=== PATIENT | female | born 1955 | race Caucasian/White ===

== ENCOUNTER 2016-10-12 17:39 | Inpatient (IN) | payer OTHER ==
[~2016-10-12] VITALS: Ht 166.4 cm; Wt 113.6 kg
[~2016-10-12 17:39] MED LIST: ADV250INH IH; ALBU2.5V4 INHALATION; ALBU8.5H2 INHALATION; ATRV10T PO; BUPR300T52 PO; CALC1CAP22 PO; CYAN10008 PO; DILT-17 PO; DULO60CA42 PO; FLUC150T3 PO; FLUT9.9S NS; FURO-129 PO; KETO5DRO68 OP; LEVO50TA83 PO; LOV120 SUBQ; MAGN400T4 PO; METF1000 PO; MONT10TA20 PO; MULT-1080 PO; NITR-66 PO; NITR100 PO; OMEP40CA36 PO; OXYC5TAB72 PO; POTA-62 PO; PRAM0.5T3 PO; PREG200C PO; RANI300T4 PO; TELM20TA PO; TOPI200T17 PO; TROS20TA4 PO; VITA400C66 PO; WARF2TAB7 PO; WARF5TAB7 PO
[2016-10-12 17:48] VITALS: BP 132/77; PULSE 97; RESP 16; O2SAT 97
--- NOTE | 2016-10-12 17:57 | ED.REPORT ---
HPI-Headache Date of Service Oct 12, 2016 ED Provider: Marc Callaway DO This patient is a 61 year old female with a history Factor V Leiden with a history of pulmonary embolism and DVT on Coumadin, restrictive lung disease on O2, and obstructive sleep on CPAP presenting to the ED complaining of frontal headache that began this morning. Her headache was a gradual onset associated with nausea that steadily worsened. Her headache started at the front of her head and is now radiates to the back of her head. She also complains of abdominal pain that has been ongoing for the past month and states that she generally feels unwell. She denies syncope, nausea, vomiting or fever. The patient was also recently treated for a bladder infection. Nursing Notes Stated Complaint: NAUSEA,HEADACHE Chief Complaint: Headache Nursing Notes Reviewed: Yes Allergies: Coded Allergies: NSAIDS (Non-Steroidal Anti-Inflamma (Verified Allergy, Intermediate, ) stomach bleed Scheduled Atorvastatin (Lipitor) 10 Mg Tab 10 MG PO DAILY Bupropion ER (Bupropion ER) 300 Mg Tab.er.24h 300 MG PO QAM Calcium Carbonate/Vitamin D3 (Calcium 600 + Vit D 400 Softgl) 1 Each Capsule 1 TAB PO DAILY Cyanocobalamin (Vitamin B-12) (Vitamin B-12) 1,000 Mcg Tablet 1,000 MCG PO DAILY Diltiazem ER (Diltiazem ER) 120 Mg Cap.er.24h 120 MG PO QAM Duloxetine (Cymbalta) 60 Mg Capsule.dr 60 MG PO HS Enoxaparin (Lovenox) 120 Mg/0.8 Ml Syringe 120 MG SUBQ Q12 Please follow instructions of the coumadin clinic Fluconazole (Fluconazole) 150 Mg Tablet 150 MG PO ONCE Fluticasone Propionate (Flonase Allergy Relief) 50 Mcg/Actuation [place].susp 9.9 ML NS DAILY Fluticasone/Salmeterol (Advair 250-50 Diskus) 60 Puff/Inh Disk 1 PUFF IH BID Furosemide (Lasix) 20 Mg Tablet 20 MG PO DAILY Ketotifen Fumarate (Zaditor) 5 Ml Drops 1 DROP OP Q12 Levothyroxine (Synthroid) 50 Mcg Tablet 50 MCG PO DAILY Magnesium Oxide (Magnesium Oxide) 400 Mg Tablet 400 MG PO Q2DAY Metformin (Glucophage) 1,000 Mg Tablet 1,000 MG PO BIDAC Montelukast (Singulair) 10 Mg Tablet 10 MG PO HS Multivits,Ca,Minerals/Iron/FA (Women's Daily Formula Caplet) 500-18-0.4 Tablet 1 EACH PO DAILY Nitrofurantoin Macrocrystal (Macrodantin) 100 Mg Capsule 100 MG PO HS Nitrofurantoin Monohyd/M-Cryst (MacroBid) 100 Mg Capsule 100 MG PO BID Omeprazole (Omeprazole) 40 Mg Capsule.dr 40 MG PO QAM Potassium Chloride ER (Potassium Chloride ER) 20 Meq Tablet.er 20 MEQ PO BID TAKE WITH FOOD Pramipexole Dihydrochloride (Mirapex) 0.5 Mg Tablet 0.25-0.5 MG PO HS Pregabalin (Lyrica) 200 Mg Capsule 200 MG PO TID Ranitidine (Ranitidine) 300 Mg Tablet 300 MG PO QPM Telmisartan (Micardis) 20 Mg Tablet 20 MG PO DAILY Topiramate (Topamax) 200 Mg Tablet 200 MG PO BID Trospium Chloride (Trospium Chloride) 20 Mg Tablet 20 MG PO BID Vitamin E Acetate (Vitamin E) 400 Unit Capsule 400 UNIT PO DAILY Warfarin Sodium (Warfarin Sodium) 2 Mg Tablet 5 MG PO sunday, sunday Warfarin Sodium (Warfarin Sodium) 5 Mg Tablet 7 MG PO Sun, , , fr, sat Scheduled PRN Albuterol HFA (Proair HFA) 8.5 Gm Hfa.aer.ad 2 PUFFS INHALATION Q4H PRN PRN For Wheezing Albuterol Neb Soln (Albuterol Neb Soln) 2.5 Mg/3 Ml Vial.neb 2.5 MG INHALATION Q4H PRN PRN For Wheezing General Time Seen by MD: 17:56 Chief Complaint Headache (Frontal) Hx Obtained From: Patient Arrived By: Walk-in Sudden in Onset?: No Onset Occurred: 13 - 16 hours ago Symptom Duration: Since onset Location: : Frontal bilateral Quality: Painful Radiation: : Does not radiate: Neck, anterior Severity: Current: Mild Severity: Maximum: Mild Recent Healthcare: No recent hospitalization, Recent doctor visit Similar Sx Previous: Yes Past Medical History Past Medical History 1. Factor V Leiden with a history of pulmonary embolism and DVT, on Coumadin. 2. History of restrictive lung disease, on 2-3 L of home oxygen daily. 3. Obstructive sleep apnea, on CPAP. 4. Morbid obesity. 5. Type 2 diabetes. 6. Left foot drop. 7. Fibromyalgia. 8. History of seizures. Her last seizure she states was 10 years ago. 9. GI bleeding secondary to NSAIDs. 10. Asthma. 11. Chronic low back pain. 12. Lower extremity edema. Reports: GERD, Hypertension Past Surgical History Cardiac cath Ventral hernia repair 2006 Arthroscopy for torn R knee cartilage 1971 Green filter placement 2004 for PE Cataracts bilaterally Bladder suspension/ovarian cyst removal 2007 R ankle/leg fracture repair with pin 1987 Lateral gaze deviation realignment 196 Smoking History Never Smoker Social History Other Social History: Good social support, , Local resident Ambulatory Status Independent Review of Systems Basic Review of Systems Respiratory: No shortness of breath, No cough, No wheeze Cardiovascular: No dyspnea on exertion Constitutional: Denies: Chills, Fever GI: Reports: Abdominal pain (onset 1 month ago), Nausea, Denies: Vomiting Neurologic: Reports: Headache (Frontal that radiated to back of her head), Denies: Syncope Complete sys rev & neg: except as marked. Physical Exam Initial Vital Signs Vital Signs (First) Date Time Temp Pulse Resp B/P Pulse Ox O2 Delivery O2 Flow Rate FiO2 10/12/16 17:48 36.3 97 16 132/77 97 Room Air 10/12/16 21:34 2 Initial VS: Reviewed ENT: Mucous membranes moist, Conjunctiva normal, No scleral icterus Respiratory: Breath sounds normal, Clear to auscultation, No respiratory distress Cardiovascular: Regular rate & rhythm, Heart sounds normal, Intact distal pulses Abdomen / GI: Soft Extremities: Vascular intact, Neuro intact Skin: Warm, Dry, No cyanosis Psychiatric: Mood/affect normal, Behavior normal, Normal thought content General/Constitutional: Awake, Alert Head / Eyes: Atraumatic, Normocephalic, PERRL, EOMI Neck: Atraumatic, Supple, No meningismus, Full range of motion, Non-tender Neurologic: Oriented X3, Speech NL, No motor deficits, No sensory deficits, CN II - XII intact Interpretation & Diagnostics Interpretation & Diagnostics: CT Head 1: IMPRESSION: No acute intracranial disease process. Dictated by: Raisa Maldonado MD, PhD on 10/12/2016 at 18:18 CT head 2: Normal exam. No acute intracranial abnormality. Dictated by: Maribel Vogel MD Lab Results Interpretation Result Diagram: 10/13/16 0912 10/12/16 1822 Test 10/12/16 18:09 10/12/16 18:22 Hold Rosenthal Top Tube Received (Received) Neutrophils (%) (Auto) 46.5% (40-74) Lymphocytes (%) (Auto) 43.2% (14-46) Monocytes (%) (Auto) 8.3% (4-12) Eosinophils (%) (Auto) 1.7% (0-5) Basophils (%) (Auto) 0.2% (0-3) Sodium Level 143mEq/L (134-144) Potassium Level 4.1mEq/L (3.5-5.2) Chloride Level 104mEq/L (97-108) Carbon Dioxide Level 25mmol/L (18-29) Blood Urea Nitrogen 18mg/dL (8-27) Creatinine 0.93mg/dL (0.57-1.00) Estimat Glomerular Filtration Rate 88mL/min (>59) Glucose Level 133mg/dL (60-99) Calcium Level 9.2mg/dL (8.5-10.1) Total Bilirubin 0.2mg/dL (0.0-1.2) Aspartate Amino Transf (AST/SGOT) 23U/L (0-50) Alanine Aminotransferase (ALT/SGPT) 17U/L (0-32) Alkaline Phosphatase 82U/L (25-165) Total Protein 8.0g/dL (6.4-8.4) Albumin 4.2g/dL (3.4-5.0) Pulse Oximetry Interpretation Pulse Oximetry Interpretation: 97% on room air ECG Interpretation ECG Interpretation: 97% on room air CT Head Interpretation CT Abd / Pelvis Interpretation Re-Eval/Medical Decision Med Decision/Clinical Course Patient is a 61 year old female with a history of Factor V Leiden with a history of pulmonary embolism and DVT on Coumadin who presents to the ED with a headache onset this morning. Examination was normal. Head was atraumatic. Neck is supple and nontender. Neurological exam nonfocal. CT scan of the head was negative. The patient complained of a worsening headache while in the emergency department, with repeat CT scan of her head also negative. Patient has an INR >10 with PT of >120 and was started on Vitamin K. Labs are otherwise unremarkable. Evaluation was reassuring. Patient will be admitted to the hospital for ongoing management of her headache and INR. Admitted to Dr. Reina. Source of Hx: Old records Re-Evaluation/Progress #1: Time of Eval: 19:07 Re-Evaluation/Progress Note: Told pt. she has an INR of 10. CT scan of her head was negative. She needs to be admitted. Pt. understands and agrees with plan. All questions have been addressed. Re-Evaluation/Progress #2: Time of Eval: 22:02 )( Patient Status: Condition improved Re-Evaluation/Progress Note: Pt. rechecked. Pt. has worsening headache. Will repeat CT head. Pt. understands and agrees with plan. All questions have been addressed. Counseled Regarding: Diagnosis, Lab results, Need for admission Discharge & Departure Impression: Primary Impression: Headache Headache type: unspecified Headache chronicity pattern: acute headache Intractability: not intractable Qualified Code: R51 - Headache Additional Impressions: Elevated INR Over-anticoagulated Disposition: ADMITTED TO HOSPITAL Discharge Condition All VS Reviewed: Yes Condition: Stable Referrals: Ryan Castillo DO (PCP) Stephanie Attestation Portions of this note were transcribed by Anaid Thibodeaux and Carmen Mcginnis I, Dr. Callaway personally performed the history, physical exam and medical decision-making ; I reviewed and confirmed the accuracy of the information in the transcribed note. Signed by: Anaid Thibodeaux and Stephanie Cardenas, 10/13/2016 and 0126 copies to: Ryan Castillo Todd P DO Oct 12, 2016 17:57 Jacquelyn Thibodeaux [Anaid] Oct 12, 2016 18:50 Carmen Mcginnis Oct 13, 2016 01:26 Re-Eval/Medical Decision Med Decision/Clinical Course Patient is a 61 year old female with a history of Factor V Leiden with a history of pulmonary embolism and DVT on Coumadin who presents to the ED with a headache onset this morning. Examination was normal. Head was atraumatic. Neck is supple and nontender. Neurological exam nonfocal. CT scan of the head was negative. The patient complained of a worsening headache while in the emergency department, with repeat CT scan of her head also negative. Patient has an INR >10 with PT of >120 and was started on Vitamin K. Labs are otherwise unremarkable. Evaluation was reassuring. Patient will be admitted to the hospital for ongoing management of her headache and INR. Admitted to Dr. Reina. Source of Hx: Old records Re-Evaluation/Progress #1: Time of Eval: 19:07 Re-Evaluation/Progress Note: Told pt. she has an INR of 10. CT scan of her head was negative. She needs to be admitted. Pt. understands and agrees with plan. All questions have been addressed. Re-Evaluation/Progress #2: Time of Eval: 22:02 )( Patient Status: Condition improved Re-Evaluation/Progress Note: Pt. rechecked. Pt. has worsening headache. Will repeat CT head. Pt. understands and agrees with plan. All questions have been addressed. Counseled Regarding: Diagnosis, Lab results, Need for admission Discharge & Departure Impression: Primary Impression: Headache Headache type: unspecified Headache chronicity pattern: acute headache Intractability: not intractable Qualified Code: R51 - Headache Additional Impressions: Elevated INR Over-anticoagulated Disposition: ADMITTED TO HOSPITAL Discharge Condition All VS Reviewed: Yes Condition: Stable Referrals: Ryan Castillo DO (PCP) Stephanie Attestation Portions of this note were transcribed by Anaid Mcginnis I, Dr. Callaawy personally performed the history, physical exam and medical decision-making ; I reviewed and confirmed the accuracy of the information in the transcribed note. Signed by: Anaid Thibodeaux and Stephanie Cardenas, 10/13/2016 and 0126 copies to: Ryan Castillo Todd P DO Oct 12, 2016 17:57 Jacquelyn Thibodeaux [Anaid] Oct 12, 2016 18:50 Carmen Mcginnis Oct 13, 2016 01:26
--- NOTE | 2016-10-12 18:20 | DRSVH ---
PROCEDURE: CT BRAIN WITHOUT CONTRAST ([id number]) INDICATIONS: RAMIREZ, elevated INR TECHNIQUE: Noncontrast 4.5 mm thick angled axial sections acquired from the foramen magnum to the vertex, with c oronal reformats. COMPARISON: [facility], CT, CT BRAIN WO CON, 07/22/2015, 19:27. FINDINGS: Image quality: Excellent. CSF spaces: Basal cisterns are patent. No extra-axial fluid collections. Ventricles are normal in size and shape. Brain: No midline shift. No intracranial masses or hemorrhage. Andrews-white matter interface is norm al. Skull and face: Calvarium and visualized facial bones are intact, without suspicious lesions. Sinuses: Mucous retention cyst versus polyp is noted in the right maxillary sinus. The mastoids are clear. IMPRESSION: No acute intracranial disease process. Dictated by: Raisa Maldonado MD, PhD on 10/12/2016 at 18:18 Approved by: Raisa Maldonado MD, PhD on 10/12/2016 at 18:18
[2016-10-12 18:32] LABS: BASOPHILS % (AUTO) 0.2 % (0-3); EOSINOPHILS % (AUTO) 1.7 % (0-5); MONOCYTES % (AUTO) 8.3 % (4-12); Mean Corpuscular Hemoglobin 31.3 pg (27.0-35.0); Mean Corpuscular Volume 94.7 fL (81-100); NEUTROPHILS % (AUTO) 46.5 % (40-74); Platelet Count 242 bil/L (150-400)
[2016-10-12] MEDS ORDERED: oxyCODONE-Acetamin 5-325 mg Tablet PO ONE (18:50)
[2016-10-12] MEDS ORDERED: Dexamethasone Inj 10 MG in 0.9% Sodium Chloride-Pha MIX 50 ML IV ONE (18:50)
[2016-10-12] MEDS ORDERED: Ondansetron 8 mg ODT Tablet PO ONE (18:50)
[2016-10-12 18:52] LABS: INR > 10.00 ratio
[2016-10-12] MEDS ORDERED: Phytonadione (Adult) 10 mg/1 mL Inj PO ONE (19:00)
[2016-10-12 21:34] VITALS: BP 114/74; PULSE 80; RESP 20; O2SAT 99
[2016-10-12] MEDS ORDERED: Alum-Mag Hydrox-Simeth 30 mL Suspension PO PRN (22:55)
[2016-10-12] MEDS ORDERED: Polyethylene Glycol (PEG) 17 Gm Powder PO PRN (22:55)
[2016-10-12] MEDS ORDERED: Ondansetron 2 mg/mL 2 mL Inj IVPUSH PRN (22:55)
[2016-10-13] MEDS ORDERED: Pantoprazole 4 mg/mL 10 mL Inj IVPUSH ONE (01:50)
[2016-10-13] MEDS ORDERED: Glucose 40% Oral Gel 15 Gm Tube PO PRN (02:40)
--- NOTE | 2016-10-13 02:43 | PCM.HPMED ---
Subjective Date of Service Oct 13, 2016 Primary Provider: Admitting Physician: Ximena Reina DO Primary Care Physician: Ryan Castillo DO Attending Physician: Ximena Reina DO Chief Complaint: Frontal headache History of Present Illness: 61-year-old female with complex medical history significant for factor V Leiden and protein C deficiency with history of PE and DVT on Coumadin for anticoagulation and also chronic migraine headaches who presents to the ED as instructed by her primary care physician due to INR greater than 10 and ongoing headache abdominal pain. Patient states that the headache started on 2016 in the evening and continued through the next day despite attempts to break the headache with pain medication. At the onset of headache the patient also had abdominal pain which she says likely linked to her not having complete bowel movements. Patient states that she present to the INR clinic and was told that she had INR greater than 8. She followed up with the lab who alex blood and she later received a call from her PCP that she needed to go to the ED because of her symptoms and elevated INR. On presentation the patient continues to have headache and was given steroids, opiates, and diphenhydramine to try to break the headache which she says helped but did not take the headache away. She has photosensitivity but no phonophobia. She states that she has nausea without vomiting but does state that she has had some tarry stools although she denies that they are black in color. She denies all other review of symptoms including sensation loss, weakness, changes in vision, dizziness, lightheadedness, fever, chills, dysuria. Patient is taking fluconazole along with some other antibiotic that she thinks may cause increase in her INR. In ED she received medications for her headache and vitamin K to reverse INR. She underwent to CT-head 2 and both were negative for acute bleed. White count 3.3, hemoglobin 14.2, hematocrit 42.9, platelet count is 242, neutrophils 46.5 Sodium is 143, potassium 4.1, chloride 104, bicarbonate 25, BUN 18, creatinine 0.93, glucose elevated at 133 PT/INR is >120/>10 Review of Systems: Complete review of systems performed; gram-positive negatives per history of present illness all his systems reviewed and are negative Allergies Coded Allergies: NSAIDS (Non-Steroidal Anti-Inflamma (Verified Allergy, Intermediate, ) stomach bleed Home Medications Atorvastatin (Lipitor) 10 Mg Tab 10 MG PO DAILY Bupropion ER (Bupropion ER) 300 Mg Tab.er.24h 300 MG PO QAM Calcium Carbonate/Vitamin D3 (Calcium 600 + Vit D 400 Softgl) 1 Each Capsule 1 TAB PO DAILY Cyanocobalamin (Vitamin B-12) (Vitamin B-12) 1,000 Mcg Tablet 1,000 MCG PO DAILY Diltiazem ER (Diltiazem ER) 120 Mg Cap.er.24h 120 MG PO QAM Duloxetine (Cymbalta) 60 Mg Capsule.dr 60 MG PO HS Enoxaparin (Lovenox) 120 Mg/0.8 Ml Syringe 120 MG SUBQ Q12 Please follow instructions of the coumadin clinic Fluconazole (Fluconazole) 150 Mg Tablet 150 MG PO ONCE Fluticasone Propionate (Flonase Allergy Relief) 50 Mcg/Actuation [place].susp 9.9 ML NS DAILY Fluticasone/Salmeterol (Advair 250-50 Diskus) 60 Puff/Inh Disk 1 PUFF IH BID Furosemide (Lasix) 20 Mg Tablet 20 MG PO DAILY Ketotifen Fumarate (Zaditor) 5 Ml Drops 1 DROP OP Q12 Levothyroxine (Synthroid) 50 Mcg Tablet 50 MCG PO DAILY Magnesium Oxide (Magnesium Oxide) 400 Mg Tablet 400 MG PO Q2DAY Metformin (Glucophage) 1,000 Mg Tablet 1,000 MG PO BIDAC Montelukast (Singulair) 10 Mg Tablet 10 MG PO HS Multivits,Ca,Minerals/Iron/FA (Women's Daily Formula Caplet) 500-18-0.4 Tablet 1 EACH PO DAILY Nitrofurantoin Macrocrystal (Macrodantin) 100 Mg Capsule 100 MG PO HS Nitrofurantoin Monohyd/M-Cryst (MacroBid) 100 Mg Capsule 100 MG PO BID Omeprazole (Omeprazole) 40 Mg Capsule.dr 40 MG PO QAM Potassium Chloride ER (Potassium Chloride ER) 20 Meq Tablet.er 20 MEQ PO BID TAKE WITH FOOD Pramipexole Dihydrochloride (Mirapex) 0.5 Mg Tablet 0.25-0.5 MG PO HS Pregabalin (Lyrica) 200 Mg Capsule 200 MG PO TID Ranitidine (Ranitidine) 300 Mg Tablet 300 MG PO QPM Telmisartan (Micardis) 20 Mg Tablet 20 MG PO DAILY Topiramate (Topamax) 200 Mg Tablet 200 MG PO BID Trospium Chloride (Trospium Chloride) 20 Mg Tablet 20 MG PO BID Vitamin E Acetate (Vitamin E) 400 Unit Capsule 400 UNIT PO DAILY Warfarin Sodium (Warfarin Sodium) 2 Mg Tablet 5 MG PO sunday, sunday Warfarin Sodium (Warfarin Sodium) 5 Mg Tablet 7 MG PO Sun, , , fr, sat Albuterol HFA (Proair HFA) 8.5 Gm Hfa.aer.ad 2 PUFFS INHALATION Q4H PRN PRN For Wheezing Albuterol Neb Soln (Albuterol Neb Soln) 2.5 Mg/3 Ml Vial.neb 2.5 MG INHALATION Q4H PRN PRN For Wheezing oxyCODONE (oxyCODONE) 5 Mg Tablet 5-10 MG PO Q6H PRN PRN For Pain PMH 1. Factor V Leiden with a history of pulmonary embolism and DVT, on Coumadin. 2. History of restrictive lung disease, on 2-3 L of home oxygen daily. 3. Obstructive sleep apnea, on CPAP. 4. Morbid obesity. 5. Type 2 diabetes. 6. Left foot drop. 7. Fibromyalgia. 8. History of seizures. Her last seizure she states was 10 years ago. 9. GI bleeding secondary to NSAIDs. 10. Asthma. 11. Chronic low back pain. 12. Lower extremity edema. 13. GERD 14. Hypertension Surgical History Cardiac cath Ventral hernia repair 2006 Arthroscopy for torn R knee cartilage 1971 Green filter placement 2004 for PE Cataracts bilaterally Bladder suspension/ovarian cyst removal 2007 R ankle/leg fracture repair with pin 1987 Lateral gaze deviation realignment 1961 Family History No history of clotting disorders Brother of leukemia Brother had two strokes, neither hemorrhagic Social History Hx Alcohol Use: No Hx Substance Use: No Hx Tobacco Use: No Smoking Status: Never Smoker Living Arrangement: with Family Exam Vital Signs Vital Sign - Last Date Time Temp Pulse Resp B/P Pulse Ox O2 Delivery O2 Flow Rate FiO2 10/12/16 21:34 36.8 80 20 114/74 99 Nasal Cannula 2 Exam GEN: Patient's well-developed, no acute distress, conversive HEENT: Mucous membranes moist, neck supple, no bleeding around the gums, no lives in the oropharynx Lymph: No lymphedema present Cardio: Regular rate and rhythm no murmurs rubs or gallops Respiratory: CTA bilaterally, no wheezes rhonchi and only minor crackles in the bases Abdomen: Mild guarding with mild tenderness diffusely through the abdomen with some left-sided fullness; patient states the pain is due to her needing to have a bowel movement Extremities: There is mild edema, strength 5 out of 5 Neuro: Cranial nerves II through XII are intact, sensation intact throughout, strength is 5 out of 5 throughout, finger to nose intact, Babinski negative, [id number] negative Psych: Opium and affect Skin: No signs of bruising or recent trauma Lab and Diagnostics Result Diagram: 10/12/16182110/12/161821 X-Rays, CTs and MRIs CT-brain noncontrast IMPRESSION: No acute intracranial disease process. Dictated by: Raisa Maldonado MD, PhD on 10/12/2016 at 18:18 Assessment & Plan 61-year-old female with history of factor V Leiden with history of pulmonary embolism and DVT on Coumadin for anticoagulation and chronic headaches presents to the emergency department with a frontal headache and extreme supra therapeutic INR greater than 10. CT-head 2 are negative. Vitals are normal, lab work is benign except the INR and elevated glucose Frontal headache with supra therapeutic INR; present on admission; ongoing -Patient states that the headache came on gradually and not suddenly; CT scans are negative 2 -Patient given oxycodone, dexamethasone, diphenhydramine for treatment of headache in the ED -We will continue to perform neuro checks to ensure no acute bleed Supra therapeutic INR secondary to Coumadin; present on admission; ongoing -Patient has INR greater than 10 with unknown exacerbating factor, although fluconazole could be a player; patient must remain on anticoagulation due to factor V leiden and reported protein C deficiency -Vitamin K 10 mg given once in ED -Repeat PT/INR in a.m. Abdominal discomfort; presentation on admission; ongoing - Started with the headache; nausea, no vomiting; reports tarry but not black stools - Continue Protonix 40mg BID -Zofran for nausea Type II diabetes; present on admission; ongoing -Patient presents with a blood glucose of 133 -Patient taking metformin as an outpatient -We will start patient on low correctional dose insulin while in the hospital Hypertension; present on admission; ongoing -Patient blood pressures very well controlled currently -Patient on Telmisartan 20 mg tablets daily; will continue once med rec is finished -Continue diltiazem from home Chronic hypothyroidism; present admission; ongoing -Continue home levothyroxine 50 g tablets daily without food History of restrictive lung disease, asthma, and CRISTY; present on admission; ongoing -Continue home CPAP, continue inhalers as needed -Patient is here under observation, if maintained for extended duration restart all home scheduled inhalers Hyperlipidemia; present admission; ongoing -Continue home atorvastatin 10 mg daily History of restless leg syndrome; present on admission; ongoing -Continue home pramipexole hydrochloride 0.5 mg tablets Depression; present admission; ongoing -Continue home bupropion and duloxetine Disposition: This is a medically complex individual is being admitted for observation overnight with extreme INR greater than 10 and headache with expected length of stay less than 24 hours. Pain Evaluation: Adequate Pain Control VTE Prophylaxis Indicated: Contraindicated Resuscitation Status: CPR: Attempt Resuscitation Attending Statement The patient was seen and examined together with house staff on 10/12/2016 and I agree with the history, exam and plan as outlined in the note above. Steven Nunez DO Oct 13, 2016 01:35 Ximena Reina DO Oct 13, 2016 06:58
[2016-10-13 02:50] LABS: INR 10.35 ratio
--- NOTE | 2016-10-13 05:33 | NUR ---
Admit Admitted to ED room 10 as inpatient. 2L NC which is home O2 rate without c/o SOB @ rest. Reports baseline GAXIOLA. Denies CP or discomfort. Tolerating PO intake without difficulty. SBA BSC with slow steady gait. IV SL. Personal belongings at bedside per patient request. Oriented to call light use with return demonstration.
[2016-10-13 05:54] VITALS: BP 115/63; PULSE 76; RESP 18; O2SAT 97
--- NOTE | 2016-10-13 07:22 | DRSVH ---
PROCEDURE: CT BRAIN WITHOUT CONTRAST ([id number]) INDICATIONS: follow up CT, inr >10 and severe headache TECHNIQUE: Noncontrast 4.5 mm thick angled axial sections acquired from the foramen magnum to the vertex, with c oronal reformats. COMPARISON: [facility], CT, CT BRAIN WO CON, 10/12/2016, 17:56. FINDINGS: Image quality: Excellent. CSF spaces: Basal cisterns are patent. No extra-axial fluid collections. Ventricles are normal in size and shape. Brain: No midline shift. No intracranial masses or hemorrhage. Andrews-white matter interface is norm al. Skull and face: Calvarium and visualized facial bones are intact, without suspicious lesions. Sinuses: Visualized sinuses demonstrate partially visualized right maxillary mucus retention cyst/po lyp/mucosal thickening focus. IMPRESSION: 1. No acute intracranial process. Stable interval exam compared to 10/12/16. Dictated by: Lorrie Estrada M.D. on 10/13/2016 at 7:21 Approved by: Lorrie Estrada M.D. on 10/13/2016 at 7:21
[2016-10-13] MEDS ORDERED: Influenza (Adult) Vaccine 0.5 mL Syringe IM ONE (08:30)
[2016-10-13 09:30] LABS: Mean Corpuscular Volume 94.7 fL (81-100)
--- NOTE | 2016-10-13 09:32 | NUR ---
Social Work Note - Brief Note - Initial Assessment Mouna Byrne is a 61 yr old admitted for high INR and head ache. EMR reviewed: Pt has [employer] insurance - her PCP is Ryan Castillo DO. Readmit score not available. Pt lives in [place] with her and son. She is independent at baseline - has factor V Leiden, chronic pain, COPD - O2 dependent. Pt will return home with family at d/c - SW will follow if needs arise. Plan: Home with family in POV - No needs identified. TERRANCE Martinez
[2016-10-13 09:58] LABS: INR 9.39 ratio
[2016-10-13] MEDS: Insulin LISPRO 300 Unit/3 mL Inj SUBQ SCH ×4 (10:13→22:00)
[2016-10-13] MEDS: Pantoprazole 40 mg ER24 Tablet PO SCH ×2 (10:13→17:15)
[2016-10-13 10:55] VITALS: BP 121/77; PULSE 79; RESP 19; O2SAT 98
--- NOTE | 2016-10-13 12:08 | NUR ---
Admit Pt admitted to floor. A&O3 x3. Pt c/o an "annoying" RAMIREZ at -01/01 (has not changed). Hospitalist aware but advises against pain meds at this time while INR is supratherapeutic. Pt currently on 1L NC. Will continue to monitor.
--- NOTE | 2016-10-13 14:41 | NUR ---
Lyrica Home medication Cook paged doctor r/t patient asking for home medication Lyrica 200 mg TID for left foot pins and needles. Doctor responded and aware. Notified patient and aware.
--- NOTE | 2016-10-13 15:28 | PCM.PNMED ---
Subjective Date of Service Oct 13, 2016 Subjective 61-year-old female with history of factor V Leiden with history of pulmonary embolism and DVT on Coumadin for anticoagulation and chronic headaches presents to the emergency department with a frontal headache and extreme supra therapeutic INR greater than 10. Admitted for supratherapeutic INR. Hospital day 2. Overnight: Patient was admitted overnight. Vitamin K 10 mg by mouth was administered. She received treatment for headache which has improved slightly. She does have a history of migraines. No other acute events. Today: Patient states she is feeling better. She states she feels a headache but it has improved. She has a little bit of stomach discomfort but no diarrhea , nausea, or vomiting. She denies any dysuria or hematuria. Remaining review of systems is negative. Exam Vital Signs Vital Sign - Last Date Time Temp Pulse Resp B/P Pulse Ox O2 Delivery O2 Flow Rate FiO2 10/13/16 12:12 Supplement Oxygen 10/13/16 10:55 36.6 79 19 121/77 98 1.00 Exam GEN: Patient's well-developed, no acute distress, conversive HEENT: Mucous membranes moist, neck supple, no bleeding around the gums, no lives in the oropharynx Lymph: No lymphedema present Cardio: Regular rate and rhythm no murmurs rubs or gallops Respiratory: CTA bilaterally, no wheezes rhonchi and only minor crackles in the bases Abdomen: Soft, bowel sounds present, diffuse tenderness to palpation. Extremities: There is mild edema, strength 5 out of 5 Neuro: Cranial nerves II through XII are intact, sensation intact throughout, strength is 5 out of 5 throughout, finger to nose intact, Babinski negative, [id number] negative Psych: Alert and oriented 3. Skin: No signs of bruising or recent trauma Lab and Diagnostics Result Diagram: 10/13/16 0912 10/12/16 1822 X-Rays, CTs and MRIs CT-brain noncontrast IMPRESSION: No acute intracranial disease process. Dictated by: Raisa Maldonado MD, PhD on 10/12/2016 at 18:18 Assessment & Plan 61-year-old female with history of factor V Leiden with history of pulmonary embolism and DVT on Coumadin for anticoagulation and chronic headaches presents to the emergency department with a frontal headache and extreme supra therapeutic INR greater than 10. Admitted for supratherapeutic INR. Hospital day 2. 1. Frontal headache with supra therapeutic INR; present on admission; ongoing -Patient states that the headache came on gradually and not suddenly; CT scans are negative 2 -Patient has history of migraines. -Patient given oxycodone, dexamethasone, diphenhydramine for treatment of headache in the ED. -We will continue to perform neuro checks to ensure no acute bleed 2. Supra therapeutic INR secondary to Coumadin; present on admission; ongoing -Patient has INR greater than 10 with unknown exacerbating factor, although fluconazole and Augmentin could be contributors; patient must remain on anticoagulation due to factor V leiden and reported protein C deficiency -Vitamin K 10 mg given once in ED -Repeat PT/INR was 9.39. -Repeat PT/INR later this afternoon and in the a.m. 3. Abdominal discomfort; presentation on admission; improving - Patient states she has had abdominal pain on and off for the last month during which time she has had a urinary infection and has been on multiple antibiotics. -Continue Protonix 40mg BID -Zofran for nausea 4. Type II diabetes; present on admission; ongoing -Patient presents with a blood glucose of 133 -Patient taking metformin as an outpatient -Continue metformin. 5. Hypertension; present on admission; ongoing -Patient blood pressures very well controlled currently -Losartan 25 mg daily -Diltiazem 120 mg daily 6. Chronic hypothyroidism; present admission; ongoing -Continue home levothyroxine 50 g tablets daily without food 7. History of restrictive lung disease, asthma, and CRISTY; present on admission; ongoing -Continue home CPAP, continue inhalers as needed 8. Hyperlipidemia; present admission; ongoing -Continue home atorvastatin 10 mg daily 9. History of restless leg syndrome; present on admission; ongoing -Continue home pramipexole hydrochloride 0.5 mg tablets 10. Depression; present admission; ongoing -Continue home bupropion and duloxetine Disposition: Patient's discharge pending improvement in INR. Discharged home with no needs. GI Prophylaxis: Proton Pump Inhibitor VTE Prophylaxis: Other (supratherapeutic INR) Resuscitation Status: CPR: Attempt Resuscitation Attending Statement The patient was seen and examined together with Resident/House-staff on 10/13/16 and I agree with the history, exam and plan as outlined in the note above. MATTHEW COX DO Oct 13, 2016 15:28 Hermes Hunt Oct 13, 2016 17:34
[2016-10-13 15:38] LABS: INR 7.74 ratio
--- NOTE | 2016-10-13 15:44 | NUR ---
Critical INR Lab called r/t critical INR 7.74. PT 86.4. digna rahman.
[2016-10-13] MEDS ORDERED: Albuterol 2.5 mg/3 mL Inhalation Solution NEB PRN (16:00)
[2016-10-13 17:10] VITALS: BP 107/69; PULSE 79; RESP 14; O2SAT 97
[2016-10-13 20:00] VITALS: BP 115/71; PULSE 83; RESP 16; O2SAT 98
[2016-10-13] MEDS: Fluticasone-Salmererol 250-50 Inhaler INHALATION SCH (21:57)
[2016-10-14 05:22] VITALS: BP 118/64; PULSE 68; RESP 16; O2SAT 98
--- NOTE | 2016-10-14 06:29 | NUR ---
INR/Pain/Influenza Screen Pt's AM labs have not been drawn yet. Last INR was 7.74. Pt has not c/o headache and has had no pain medication. Pt's Influenza screen came back negative for both A and B.
[2016-10-14] MEDS: Insulin LISPRO 300 Unit/3 mL Inj SUBQ SCH ×4 (07:44→21:43)
[2016-10-14] MEDS: Diltiazem CD 120 mg ER24 Capsule PO SCH (07:56)
[2016-10-14] MEDS: Pantoprazole 40 mg ER24 Tablet PO SCH ×2 (07:56→17:11)
[2016-10-14] MEDS: buPROPion XL 300 mg ER24 Tablet PO SCH (07:56)
[2016-10-14] MEDS: Fluticasone-Salmererol 250-50 Inhaler INHALATION SCH ×2 (07:57→19:56)
[2016-10-14 08:00] LABS: BASOPHILS % (AUTO) 0 % (0-3); EOSINOPHILS % (AUTO) 0.3 % (0-5); MONOCYTES % (AUTO) 9.7 % (4-12); Mean Corpuscular Volume 94.5 fL (81-100); NEUTROPHILS % (AUTO) 54.9 % (40-74); Platelet Count 183 bil/L (150-400)
[2016-10-14 08:15] LABS: INR 3.6 ratio
--- NOTE | 2016-10-14 10:50 | NUR ---
Morning Rounds Staffed patient's case with Dr. Hunt and social work. Dr. Hunt stated patient will remain another night, as her INR has been dropping too fast. Stated if the INR is subtherapeutic on next draw she may have to be started on Lovenox.
--- NOTE | 2016-10-14 12:43 | PCM.PNMED ---
Subjective Date of Service Oct 14, 2016 Subjective 61-year-old female with history of factor V Leiden with history of pulmonary embolism and DVT on Coumadin for anticoagulation and chronic headaches presents to the emergency department with a frontal headache and extreme supra therapeutic INR greater than 10. Admitted for supratherapeutic INR. Hospital day 3. Overnight: No acute events overnight. Today: Patient states she is feeling better. Headache has resolved. Continues to have mild abdominal discomfort. Patient's PCP visited and discussed outpatient workup for abdominal discomfort. Denies chest pain, shortness of breath, nausea, vomiting, diarrhea, or dysuria. Remaining review of systems is negative. Exam Vital Signs Vital Sign - Last Date Time Temp Pulse Resp B/P Pulse Ox O2 Delivery O2 Flow Rate FiO2 10/14/16 07:50 Supplement Oxygen 10/14/16 05:22 36.5 68 16 118/64 98 2.00 Intake and Output 10/13/16 10/13/16 10/14/16 Cumulative From/Thru 15:00 23:00 07:00 10/12/16 17:48 - 10/14/16 05:22 Intake Total 540 ml 600 ml 1140 ml Output Total 1500 ml 1500 ml Balance 540 ml -900 ml -360 ml Intake Oral 540 ml 600 ml 1140 ml Output Urine Total 1500 ml 1500 ml # Voids 3 3 # Bowel Movements 0 0 Exam GEN: Patient's well-developed, no acute distress, conversive HEENT: Mucous membranes moist, neck supple, no bleeding around the gums, no lives in the oropharynx Lymph: No lymphedema present Cardio: Regular rate and rhythm no murmurs rubs or gallops Respiratory: CTA bilaterally, no wheezes rhonchi and only minor crackles in the bases Abdomen: Soft, bowel sounds present, diffuse tenderness to palpation. Extremities: There is mild edema, strength 5 out of 5 Neuro: Cranial nerves II through XII are intact, sensation intact throughout, strength is 5 out of 5 throughout, finger to nose intact, Babinski negative, [id number] negative Psych: Alert and oriented 3. Skin: No signs of bruising or recent trauma Lab and Diagnostics Result Diagram: 10/14/16 0632 10/14/16 0632 X-Rays, CTs and MRIs CT-brain noncontrast IMPRESSION: No acute intracranial disease process. Dictated by: Raisa Maldonado MD, PhD on 10/12/2016 at 18:18 Assessment & Plan 61-year-old female with history of factor V Leiden with history of pulmonary embolism and DVT on Coumadin for anticoagulation and chronic headaches presents to the emergency department with a frontal headache and extreme supra therapeutic INR greater than 10. Admitted for supratherapeutic INR. Hospital day 3. 1. Frontal headache with supra therapeutic INR; present on admission; ongoing -Patient states that the headache came on gradually and not suddenly; CT scans are negative 2 -Patient has history of migraines. -Patient given oxycodone, dexamethasone, diphenhydramine for treatment of headache in the ED. -We will continue to perform neuro checks to ensure no acute bleed 2. Supra therapeutic INR secondary to Coumadin; present on admission; ongoing -Patient has INR greater than 10 with unknown exacerbating factor, although fluconazole and Augmentin could be contributors; patient must remain on anticoagulation due to factor V leiden and reported protein C deficiency -Vitamin K 10 mg given once in ED -Repeat PT/INR this morning was 3.60. -As INR is dropping quickly will restart patient's warfarin today. -Repeat INR this afternoon. Consider bridging with Lovenox if INR subtherapeutic. -Repeat PT/INR in the a.m. 3. Abdominal discomfort; presentation on admission; improving - Patient states she has had abdominal pain on and off for the last month during which time she has had a urinary infection and has been on multiple antibiotics. -Continue Protonix 40mg BID -Zofran for nausea -PCP completing workup as outpatient. Patient agreeable to this plan. 4. Type II diabetes; present on admission; ongoing -Patient presents with a blood glucose of 133 -Patient taking metformin as an outpatient -Continue metformin. 5. Hypertension; present on admission; ongoing -Patient blood pressures very well controlled currently -Losartan 25 mg daily -Diltiazem 120 mg daily 6. Chronic hypothyroidism; present admission; ongoing -Continue home levothyroxine 50 g tablets daily without food 7. History of restrictive lung disease, asthma, and CRISTY; present on admission; ongoing -Continue home CPAP, continue inhalers as needed 8. Hyperlipidemia; present admission; ongoing -Continue home atorvastatin 10 mg daily 9. History of restless leg syndrome; present on admission; ongoing -Continue home pramipexole hydrochloride 0.5 mg tablets 10. Depression; present admission; ongoing -Continue home bupropion and duloxetine Disposition: Patient's discharge pending improvement in INR. Discharged home with no needs. Pain Evaluation: Adequate Pain Control GI Prophylaxis: Proton Pump Inhibitor VTE Prophylaxis: Other (supratherapeutic INR) VTE Mechanical Devices: Intermittant Pneumatic CD Resuscitation Status: CPR: Attempt Resuscitation Attending Statement The patient was seen and examined together with Resident/House-staff on 10/14/16 and I agree with the history, exam and plan as outlined in the note above. MATTHEW COX DO Oct 14, 2016 12:43 Hermes Hunt Oct 14, 2016 17:37
[2016-10-14 12:48] VITALS: BP 101/68; PULSE 85; RESP 20; O2SAT 97
[2016-10-14 17:32] LABS: INR 2.38 ratio
--- NOTE | 2016-10-14 17:45 | NUR ---
IV access Contacted Dr. Hunt with the following cook page: Patient reports irritation at IV site, will remove. Please advise if you want IV access regained. Thank you. Tashia MOORE
[2016-10-14] MEDS: DULoxetine 30 mg DR Capsule PO SCH (19:58)
[2016-10-14 20:05] VITALS: BP 101/64; PULSE 95; RESP 20; O2SAT 98
--- NOTE | 2016-10-14 20:13 | PCM.PHAPRO ---
Progress Date of Service: Oct 14, 2016 Frontal headache lovenox per pharmacy ok to discontinue per Dr Ximena Santana PharmD Tray Santana Oct 14, 2016 20:13
--- NOTE | 2016-10-15 00:33 | NUR ---
Activity Pt up OOB x 1 assist to BSC She is able to get herself back to the bed without assistance. Denies pain. States she overall feels "much better" Care ongoing
[2016-10-15 04:29] VITALS: BP 100/90; PULSE 63; RESP 20; O2SAT 96
[2016-10-15] MEDS: Insulin LISPRO 300 Unit/3 mL Inj SUBQ SCH ×4 (07:56→21:23)
[2016-10-15] MEDS: buPROPion XL 300 mg ER24 Tablet PO SCH (08:13)
[2016-10-15] MEDS: Pantoprazole 40 mg ER24 Tablet PO SCH ×2 (08:13→16:48)
[2016-10-15] MEDS: Diltiazem CD 120 mg ER24 Capsule PO SCH (08:14)
[2016-10-15] MEDS: Fluticasone-Salmererol 250-50 Inhaler INHALATION SCH ×2 (08:16→21:22)
[2016-10-15 08:30] VITALS: BP 117/76; PULSE 76; RESP 18; O2SAT 99
[2016-10-15] MEDS ORDERED: Influenza (Adult) Vaccine 0.5 mL Syringe IM ONE (08:30)
[2016-10-15 09:24] LABS: Mean Corpuscular Hemoglobin 31.3 pg (27.0-35.0); Mean Corpuscular Volume 95.6 fL (81-100)
[2016-10-15 09:53] LABS: INR 1.76 ratio
--- NOTE | 2016-10-15 10:46 | NUR ---
Morning Rounds Staffed patient's case with Dr. Hunt and social work. Dr. Hunt stated he is starting IV fluids, 1/2 NS. Stated he will put in an order for pain meds, as patient did complain of neck pain. He stated patient will remain today, he will contact pharmacy for Lovenox.
--- NOTE | 2016-10-15 11:03 | PCM.PNMED ---
Subjective Date of Service Oct 15, 2016 Subjective denies any new issues/complaints. no pain, n/v Exam Vital Signs Vital Sign - Last Date Time Temp Pulse Resp B/P Pulse Ox O2 Delivery O2 Flow Rate FiO2 10/15/16 08:30 36.8 76 18 117/76 99 Nasal Cannula 2.00 Intake and Output 10/14/16 10/14/16 10/15/16 Cumulative From/Thru 15:00 23:00 07:00 10/12/16 17:48 - 10/15/16 06:43 Intake Total 320 ml 1460 ml Output Total 300 ml 1800 ml Balance 20 ml -340 ml Intake Oral 320 ml 1460 ml Output Urine Total 300 ml 1800 ml # Voids 3 # Bowel Movements 0 General: Alert, Cooperative, No Acute Distress Eyes: Scleral Anicteric Mouth: Mucous Membr Moist/[place] Neck: Supple Chest & Lungs: Chest Wall Normal, Clear to auscultation & percussion Cardiovascular: Regular Rate/Rhythm Abdomen: Non-tender, Non-distended, Normoactive bowel tones, Soft Extremities: No cyanosis/clubbing/edma bilat Neurological: Grossly Neurologically Intact, Normal Speech IVs and Medications Medications Reviewed: Medications were reviewed in detail Lab and Diagnostics Result Diagram: 10/15/16 0500 10/15/16 0738 X-Rays, CTs and MRIs CT-brain noncontrast IMPRESSION: No acute intracranial disease process. Dictated by: Raisa Maldonado MD, PhD on 10/12/2016 at 18:18 Assessment & Plan 61-year-old female with history of factor V Leiden with history of pulmonary embolism and DVT on Coumadin for anticoagulation and chronic headaches presents to the emergency department with a frontal headache and extreme supra therapeutic INR greater than 10. Admitted for supratherapeutic INR. Hospital day 3. 1. Frontal headache with supra therapeutic INR; present on admission; Resolved. -CT scans are negative 2 -Patient has history of migraines. -c/w supportive care 2. Supra therapeutic INR secondary to Coumadin; present on admission. Now subtherapeutic after receiving PO Vit K on admission -must remain on anticoagulation due to factor V Leiden and reported protein C deficiency -Vitamin K 10 mg given once in ED -Repeat PT/INR this morning was 3.60. -start bridging with Lovenox today while INR subtherapeutic (dose adjust per pharmacy) -Repeat PT/INR in the a.m. 3. Abdominal discomfort; presentation on admission; Resolved. -Patient states she has had abdominal pain on and off for the last month during which time she has had a urinary infection and has been on multiple antibiotics. -Continue Protonix 40mg BID -PCP completing workup as outpatient. Patient agreeable to this plan. 4. Type II diabetes; present on admission; ongoing -Patient presents with a blood glucose of 133 -Patient taking metformin as an outpatient -hold metformin given SUNDAY -cover with ISS 5. Hypertension; present on admission. stable. -Patient blood pressures very well controlled currently -Losartan 25 mg daily -Diltiazem 120 mg daily 6. Chronic hypothyroidism; present admission; ongoing -Continue home levothyroxine 50 g tablets daily without food 7. History of restrictive lung disease, asthma, and CRISTY; present on admission; ongoing -Continue home CPAP, continue inhalers as needed 8. Hyperlipidemia; present admission; ongoing -Continue home atorvastatin 10 mg daily 9. History of restless leg syndrome; present on admission; ongoing -Continue home pramipexole hydrochloride 0.5 mg tablets 10. Depression; present admission; ongoing -Continue home bupropion and duloxetine 11. SUNDAY. not poa - give IVF and f/u repeat labs in am - hold metformin - avoid nephrotoxic meds Dispo: likely home in am GI Prophylaxis: Proton Pump Inhibitor VTE Prophylaxis: Other (supratherapeutic INR) VTE Mechanical Devices: Intermittant Pneumatic CD Resuscitation Status: CPR: Attempt Resuscitation Time spent 30 min Hermes Hunt Oct 15, 2016 11:03
[2016-10-15 13:06] LABS: APPEARANCE,URINE CLEAR (CLEAR,HAZY); COLOR,URINE STRAW (YELLOW); OCCULT BLOOD,URINE NEGATIVE (NEGATIVE); UROBILINOGEN,URINE NORMAL (NORMAL)
[2016-10-15 14:00] VITALS: BP 123/78; PULSE 89; RESP 18; O2SAT 99
[2016-10-15 18:18] VITALS: BP 114/74; PULSE 76; RESP 18; O2SAT 99
[2016-10-15 20:28] VITALS: BP 122/78; PULSE 78; RESP 18; O2SAT 99
[2016-10-15] MEDS: DULoxetine 30 mg DR Capsule PO SCH (21:22)
[2016-10-16] MEDS ORDERED: ENOXAPARIN SUBQ SCH ×2 (01:25)
--- NOTE | 2016-10-16 04:22 | NUR ---
Ambulation Pt has been ambulating w/o any assist needed, SB for safety. Also FWW now used rather than furniture and reagan for safety.
[2016-10-16 05:34] VITALS: BP 130/74; PULSE 82; RESP 19; O2SAT 98
[2016-10-16 07:20] VITALS: BP 123/82; PULSE 91; RESP 18; O2SAT 100
[2016-10-16 07:48] LABS: INR 1.54 ratio
[2016-10-16] MEDS: Fluticasone-Salmererol 250-50 Inhaler INHALATION SCH (08:01)
[2016-10-16] MEDS: Insulin LISPRO 300 Unit/3 mL Inj SUBQ SCH (08:03)
[2016-10-16] MEDS: buPROPion XL 300 mg ER24 Tablet PO SCH (08:04)
[2016-10-16] MEDS: Diltiazem CD 120 mg ER24 Capsule PO SCH (08:04)
[2016-10-16] MEDS: Pantoprazole 40 mg ER24 Tablet PO SCH (08:05)
--- NOTE | 2016-10-16 08:33 | PCM.PHAPRO ---
Progress Warfarin Management by Pharmacy: -Indication: pt with factor V Leiden and protein C deficiency with hx of PE and DVT -Home dose: warfarin 5mg on SuWe and 7mg on all other days -Inr Goal: 2-3 -Concurrent Anticoagulation: Enoxaparin 100mg subq q39dwret -Inr Trends: supratherapeutic inr > 10 on admit on 10/12 held 7.74 10/13 held 3.6 10/14 warfarin 3mg 1.76 10/15 warfarin 5mg 1.54 10/16 -Plan: will continue with warfarin 5mg this evening and monitor Phyllis Jain [facility] Oct 16, 2016 08:33
--- NOTE | 2016-10-16 09:54 | NUR ---
Chest pain/back pain 0720 pt c/o sharp left chest/back pain. C/o mild SOB. VSS. Pt on 2LNC. BS 161. No work of breathing but pt states pain worsens with deep breathing. Began while pt at rest. 05/03. notified at 0725. NO new orders. to see pt this am. Improved, per pt, after advair this am. Pt stable in bed w/o complaints at 0945.
[2016-10-16] MEDS ORDERED: LOV100 SUBQ (10:56)
--- NOTE | 2016-10-16 11:04 | PCM.DIMED ---
Discharge Instructions Date of Service Oct 16, 2016 Dates of Hospitalization Oct 12, 2016 at 23:26 Discharge Diagnosis Discharge Diagnosis 1. Acute supra-therapeutic INR secondary to Coumadin; present on admission. Post reversal with oral Vitamin K and now subtherapeutic INR. - bridging with Lovenox to Coumadin (goal INR 2-3) 2. History of factor V Leiden and protein C deficiency 3. Frontal headache; present on admission; Resolved. - CT scans of head were negative 2 4. Acute on chronic abdominal pain; presentation on admission; Resolved. - further followup with primary care provider as outpatient recommended. 5. Type II diabetes 6. History of Hypertension. stable. 7. Chronic hypothyroidism 8. History of restrictive lung disease, asthma, and obstructive sleep apnea 9. History of Hyperlipidemia 10. History of restless leg syndrome 11. History of Depression. stable 12. Acute kidney injury, not present on admission. Resolved. Medication Instructions Continue with Lovenox and Coumadin as prescribed. Stop Lovenox when INR greater or equal to 2 and continue with Coumadin (goal INR is 2-3). Diet Low fat, Low Sodium, Heart Healthy, Diabetic Activity No restrictions Call your provider Fever or Chills, Shortness of breath, Bleeding, Chest pain Patient Instructions Seek immediate medical attention if any new or worsening signs or symptoms occur. Follow-up plan 1. Followup at [facility] to recheck your INR and adjust Coumadin dose as needed in 1-2 days 2. Followup with primary care provider in 3-5 days Follow-up Provider: Ryan Castillo Masoud Oct 16, 2016 11:04
--- NOTE | 2016-10-16 11:18 | NUR ---
Social Work Continued Discharge Planning: Order for discharge acknowledged. SW met with patient and at bedside to discuss discharge plan. Plan is home with who to assist with needs and who to provide transport home upon discharge. Patient pharmacy of choice as [facility] and to obtain Lovenox upon discharge. Patient states assists with injections and no other assistance needed at this time. SW to follow. PLAN: Home with via POV, pending clinical course Bubba MARRUFO
--- NOTE | 2016-10-16 12:59 | NUR ---
Discharge Pt dc'd at 1220 via WC with home O2 at 2L NC with [employer] and . No complaints, pt stable. Reviewed dc instructions and pt verbalized understanding. Pt states she will be able to obtain lovenox at local pharmacy before next scheduled dose. To follow up with [facility] per dc instructions. All belongings with pt. IV dc'w w/o issue.
--- NOTE | 2016-10-18 17:17 | PCM.DC.MED ---
Discharge Summary Date of Service Oct 18, 2016 Dates of Hospitalization Date of Hospital Admission Oct 12, 2016 at 23:26 Date of Discharge: Oct 16, 2016 Providers: Admitting Physician: Ximena Reina DO Primary Care Physician: Ryan Castillo DO Attending Physician: Ximena Reina DO Diagnosis at Time of Discharge Diagnosis at Time of Discharge 1. Acute supra-therapeutic INR secondary to Coumadin; present on admission. Post reversal with oral Vitamin K and now subtherapeutic INR. - bridging with Lovenox to Coumadin (goal INR 2-3) 2. History of factor V Leiden and protein C deficiency 3. Frontal headache; present on admission; Resolved. - CT scans of head were negative 2 4. Acute on chronic abdominal pain; presentation on admission; Resolved. - further followup with primary care provider as outpatient recommended. 5. Type II diabetes 6. History of Hypertension. stable. 7. Chronic hypothyroidism 8. History of restrictive lung disease, asthma, and obstructive sleep apnea 9. History of Hyperlipidemia 10. History of restless leg syndrome 11. History of Depression. stable 12. Acute kidney injury, not present on admission. Resolved. Procedures XRay, CTs & MRIs CT-brain noncontrast IMPRESSION: No acute intracranial disease process. Dictated by: Raisa Maldonado MD, PhD on 10/12/2016 at 18:18 Brief History As noted in H&P by Dr. Nunez: 61-year-old female with complex medical history significant for factor V Leiden and protein C deficiency with history of PE and DVT on Coumadin for anticoagulation and also chronic migraine headaches who presents to the ED as instructed by her primary care physician due to INR greater than 10 and ongoing headache abdominal pain. Patient states that the headache started on 2016 in the evening and continued through the next day despite attempts to break the headache with pain medication. At the onset of headache the patient also had abdominal pain which she says likely linked to her not having complete bowel movements. Patient states that she present to the INR clinic and was told that she had INR greater than 8. She followed up with the lab who alex blood and she later received a call from her PCP that she needed to go to the ED because of her symptoms and elevated INR. On presentation the patient continues to have headache and was given steroids, opiates, and diphenhydramine to try to break the headache which she says helped but did not take the headache away. She has photosensitivity but no phonophobia. She states that she has nausea without vomiting but does state that she has had some tarry stools although she denies that they are black in color. She denies all other review of symptoms including sensation loss, weakness, changes in vision, dizziness, lightheadedness, fever, chills, dysuria. Patient is taking fluconazole along with some other antibiotic that she thinks may cause increase in her INR. In ED she received medications for her headache and vitamin K to reverse INR. She underwent to CT-head 2 and both were negative for acute bleed. White count 3.3, hemoglobin 14.2, hematocrit 42.9, platelet count is 242, neutrophils 46.5 Sodium is 143, potassium 4.1, chloride 104, bicarbonate 25, BUN 18, creatinine 0.93, glucose elevated at 133 PT/INR is >120/>10 Hospital Course 1. Frontal headache with supra therapeutic INR; present on admission; Resolved. -CT scans are negative 2 -Patient has history of migraines. -treated with supportive care 2. Supra therapeutic INR secondary to Coumadin; present on admission. Now subtherapeutic after receiving PO Vit K on admission -must remain on anticoagulation due to factor V Leiden and reported protein C deficiency -Vitamin K 10 mg given once in ED -started bridging with Lovenox while INR subtherapeutic (dose adjust per pharmacy) -pt requesting to d/c home noting feels comfortable with injecting Lovenox and wish to f/u on INR with PCP as outpatient 3. Abdominal discomfort; presentation on admission; Resolved. -Patient states she has had abdominal pain on and off for the last month during which time she has had a urinary infection and has been on multiple antibiotics. -Continue Protonix 40mg BID -PCP completing workup as outpatient. Patient agreeable to this plan. 4. Type II diabetes; present on admission; ongoing -Patient presents with a blood glucose of 133 -Patient taking metformin as an outpatient 5. Hypertension; present on admission. stable. -Losartan 25 mg daily -Diltiazem 120 mg daily 6. Chronic hypothyroidism; present admission; ongoing -Continue home levothyroxine 50 g tablets daily without food 7. History of restrictive lung disease, asthma, and CRISTY; present on admission; ongoing -Continue home CPAP, continue inhalers as needed 8. Hyperlipidemia; present admission; ongoing -Continue home atorvastatin 10 mg daily 9. History of restless leg syndrome; present on admission; ongoing -Continue home pramipexole hydrochloride 0.5 mg tablets 10. Depression; present admission; ongoing -Continue home bupropion and duloxetine 11. SUNDAY. not poa - resolved with IVF by day of d/c lungs CTA bilat. neuro exam non-focal and pt reports resolution of her headache Exam Vital Signs (Last) Date Time Temp Pulse Resp B/P Pulse Ox O2 Delivery O2 Flow Rate FiO2 10/16/16 08:00 Supplement Oxygen 10/16/16 07:20 36.5 91 18 123/82 100 2.00 Test 10/12/16 18:09 10/13/16 09:12 10/14/16 06:32 10/15/16 05:00 Hold Rosenthal Top Tube Received (Received) Activated Partial Thromboplast Time 47.6sec (22.8-33.0) Neutrophils (%) (Auto) 54.9% (40-74) Lymphocytes (%) (Auto) 35.0% (14-46) Monocytes (%) (Auto) 9.7% (4-12) Eosinophils (%) (Auto) 0.3% (0-5) Basophils (%) (Auto) 0% (0-3) Total Bilirubin 0.2mg/dL (0.0-1.2) Aspartate Amino Transf (AST/SGOT) 18U/L (0-50) Alanine Aminotransferase (ALT/SGPT) 15U/L (0-32) Alkaline Phosphatase 56U/L (25-165) Total Protein 7.1g/dL (6.4-8.4) Albumin 3.7g/dL (3.4-5.0) White Blood Count 8.1th/mm3 (3.8-10.1) Red Blood Count 4.34mil/mm3 (3.90-5.20) Hemoglobin 13.6g/dL (12.0-15.6) Hematocrit 41.5% (35.0-46.0) Mean Corpuscular Volume 95.6fL (81-100) Mean Corpuscular Hemoglobin 31.3pg (27.0-35.0) Mean Corpuscular Hemoglobin Concent 32.8% (32.0-37.0) Red Cell Distribution Width 13.6% (12.3-15.4) Platelet Count 187bil/L (150-400) Test 10/15/16 12:25 10/16/16 06:27 Urine Color Straw (YELLOW) Urine Appearance Clear (CLEAR,HAZY) Urine pH 5.0 (5.0-8.0) Urine Specific Leonard 1.010 (1.003-1.035) Urine Protein Negativemg/dL (NEG,TRACE) Urine Glucose (UA) Negativemg/dL (NEGATIVE) Urine Ketones Negativemg/dL (NEGATIVE) Urine Occult Blood Negative (NEGATIVE) Urine Nitrite Negative (NEGATIVE) Urine Bilirubin Negative (NEGATIVE) Urine Urobilinogen Normalmg/dL (NORMAL) Urine Leukocyte Esterase Negative (NEGATIVE) Urine RBC 0-2/hpf (0-2) Urine WBC 0-5/hpf (0-5) Urine Epithelial Cells Few/hpf (NONE-MOD) Urine Crystals None seen (NONE SEEN) Urine Bacteria None/hpf (NONE-FEW) Urine Hyaline Casts None/lpf (NONE) Urine Granular Casts None seen (NONE SEEN) Urine Waxy Casts None seen (NONE SEEN) Urine Red Blood Cell Casts None seen (NONE SEEN) Urine White Blood Cell Casts None seen (NONE SEEN) Urine Mucus None seen (None Seen) Urine Trichomonas None seen (NONE SEEN) Urine Yeast None (NONE SEEN) Urinalysis Comment None Urine Culture Reflexed Not indicated Prothrombin Time 16.6sec (8.1-12.5) Prothromb Time International Ratio 1.54ratio Sodium Level 139mEq/L (134-144) Potassium Level 4.1mEq/L (3.5-5.2) Chloride Level 100mEq/L (97-108) Carbon Dioxide Level 25mmol/L (18-29) Blood Urea Nitrogen 22mg/dL (8-27) Creatinine 0.94mg/dL (0.57-1.00) Estimat Glomerular Filtration Rate 87mL/min (>59) Glucose Level 169mg/dL (60-99) Calcium Level 8.7mg/dL (8.5-10.1) Discharge Medications Discharge Medications Atorvastatin (Lipitor) 10 Mg Tab 10 MG PO DAILY (Reported) Bupropion ER (Bupropion ER) 300 Mg Tab.er.24h 300 MG PO QAM (Reported) Calcium Carbonate/Vitamin D3 (Calcium 600 + Vit D 400 Softgl) 1 Each Capsule 1 TAB PO DAILY (Reported) Cyanocobalamin (Vitamin B-12) (Vitamin B-12) 1,000 Mcg Tablet 1,000 MCG PO DAILY (Reported) Diltiazem ER (Diltiazem ER) 120 Mg Cap.er.24h 120 MG PO QAM (Reported) Duloxetine (Cymbalta) 60 Mg Capsule.dr 60 MG PO HS (Reported) Enoxaparin (Lovenox) 120 Mg/0.8 Ml Syringe 120 MG SUBQ Q12 Please follow instructions of the coumadin clinic Prescribed by: JEAN-CLAUDE WARNER MD Enoxaparin (Lovenox) 100 Mg/Ml Syringe 100 MG SUBQ Q12H Prescribed by: YOBANI LEAL MD Fluticasone Propionate (Flonase Allergy Relief) 50 Mcg/Actuation [place].susp 9.9 ML NS DAILY (Reported) Fluticasone/Salmeterol (Advair 250-50 Diskus) 60 Puff/Inh Disk 1 PUFF IH BID ( Reported) Furosemide (Lasix) 20 Mg Tablet 20 MG PO DAILY (Reported) Ketotifen Fumarate (Zaditor) 5 Ml Drops 1 DROP OP Q12 (Reported) Levothyroxine (Synthroid) 50 Mcg Tablet 50 MCG PO DAILY (Reported) Magnesium Oxide (Magnesium Oxide) 400 Mg Tablet 400 MG PO Q2DAY (Reported) Metformin (Glucophage) 1,000 Mg Tablet 1,000 MG PO BIDAC (Reported) Montelukast (Singulair) 10 Mg Tablet 10 MG PO HS (Reported) Multivits,Ca,Minerals/Iron/FA (Women's Daily Formula Caplet) 500-18-0.4 Tablet 1 EACH PO DAILY (Reported) Omeprazole (Omeprazole) 40 Mg Capsule.dr 40 MG PO QAM (Reported) Potassium Chloride ER (Potassium Chloride ER) 20 Meq Tablet.er 20 MEQ PO BID ( Reported) TAKE WITH FOOD Pramipexole Dihydrochloride (Mirapex) 0.5 Mg Tablet 0.25-0.5 MG PO HS (Reported ) Pregabalin (Lyrica) 200 Mg Capsule 200 MG PO TID (Reported) Ranitidine (Ranitidine) 300 Mg Tablet 300 MG PO QPM (Reported) Telmisartan (Micardis) 20 Mg Tablet 20 MG PO DAILY (Reported) Topiramate (Topamax) 200 Mg Tablet 200 MG PO BID (Reported) Trospium Chloride (Trospium Chloride) 20 Mg Tablet 20 MG PO BID (Reported) Vitamin E Acetate (Vitamin E) 400 Unit Capsule 400 UNIT PO DAILY (Reported) Warfarin Sodium (Warfarin Sodium) 2 Mg Tablet 5 MG PO sunday, sunday ( Reported) Warfarin Sodium (Warfarin Sodium) 5 Mg Tablet 7 MG PO Sun, , , fr, sat ( Reported) As needed Albuterol HFA (Proair HFA) 8.5 Gm Hfa.aer.ad 2 PUFFS INHALATION Q4H PRN PRN For Wheezing Prescribed by: MONICA TAVAREZ MD Albuterol Neb Soln (Albuterol Neb Soln) 2.5 Mg/3 Ml Vial.neb 2.5 MG INHALATION Q4H PRN PRN For Wheezing (Reported) Additional med instructions Continue with Lovenox and Coumadin as prescribed. Stop Lovenox when INR greater or equal to 2 and continue with Coumadin (goal INR is 2-3). Followup Plan Disposition: Home Follow-up plan 1. Followup at [facility]Coumadin clinic to recheck your INR and adjust Coumadin dose as needed in 1-2 days 2. Followup with primary care provider in 3-5 days Discharge Diet: Low fat, Low Sodium, Heart Healthy, Diabetic Discharge Activity: No restrictions Patient Instructions Seek immediate medical attention if any new or worsening signs or symptoms occur. Follow-up Provider: Ryan Castillo DO Time spent 35 min copies to: Ryan Castillo Masoud Oct 18, 2016 17:17
[2017-02-26] MEDS ORDERED: RANI75TA21 PO (13:29)
== END 2016-10-16 12:20 | disposition home or self-care (01) | DRG 103 ==
LOC: SED 17:39 → OFED 23:26 → OBSVTOIN 23:26 → OFED 23:30 → MOC 10-13 10:09
PROVIDERS: ADMIT Internal Medicine; ATTEND Internal Medicine
DX: R51 Headache (principal); D68.2 Hereditary deficiency of other clotting factors; N17.9 Acute kidney failure, unspecified; D68.59 Other primary thrombophilia; Z86.711 Personal history of pulmonary embolism; Z86.718 Personal history of other venous thrombosis and embolism; Z79.01 Long term (current) use of anticoagulants; Z79.84 Long term (current) use of oral hypoglycemic drugs; E11.9 Type 2 diabetes mellitus without complications; I10 Essential (primary) hypertension; E03.9 Hypothyroidism, unspecified; G47.33 Obstructive sleep apnea (adult) (pediatric); E78.5 Hyperlipidemia, unspecified; G25.81 Restless legs syndrome; F32.9 Major depressive disorder, single episode, unspecified; T45.515A Adverse effect of anticoagulants, initial encounter; R10.84 Generalized abdominal pain; J45.909 Unspecified asthma, uncomplicated

== ENCOUNTER 2016-11-11 14:13 | Emergency (ER) | payer OTHER ==
[~2016-11-11] VITALS: Ht 165.1 cm; Wt 255.0 kg
[~2016-11-11 14:13] MED LIST changes: -FLUC150T3 PO; +LOV100 SUBQ; -NITR-66 PO; -NITR100 PO; -OXYC5TAB72 PO
[2016-11-11 14:22] VITALS: BP 114/71; PULSE 107; RESP 24; O2SAT 100
--- NOTE | 2016-11-11 14:31 | ED.REPORT ---
HPI-Chest Pain 40 and Over Date of Service Nov 11, 2016 ED Provider: Federico Nichole MD This is a 61 year old female with a history of DVT, anticoagulated on warfarin, restrictive lung disease, sleep apnea, morbid obesity, GERD, HTN, DM and asthma [facility] complaining of substernal chest pressure that began yesterday evening. Pressure is constant but exacerbated by non-productive cough and exertion and is rated at 8/10 at its worst. Denies nausea, vomiting, abdominal pain, constipation, diarrhea, or headache. Also reports cold-like symptoms including rhinorrhea, nasal congestion , and sore throat that have been persistent for the past few weeks. Nursing Notes Stated Complaint: CHEST PAIN/SENT FROM URGENT CARE Chief Complaint: Chest Pain Nursing Notes Reviewed: Yes Allergies: Coded Allergies: NSAIDS (Non-Steroidal Anti-Inflamma (Verified Allergy, Intermediate, ) stomach bleed Insulins - Human (Verified Allergy, Unknown, Rash, 11/11/16) Scheduled Atorvastatin (Lipitor) 10 Mg Tab 10 MG PO DAILY Bupropion ER (Bupropion ER) 300 Mg Tab.er.24h 300 MG PO QAM Calcium Carbonate/Vitamin D3 (Calcium 600 + Vit D 400 Softgl) 1 Each Capsule 1 TAB PO DAILY Cyanocobalamin (Vitamin B-12) (Vitamin B-12) 1,000 Mcg Tablet 1,000 MCG PO DAILY Diltiazem ER (Diltiazem ER) 120 Mg Cap.er.24h 120 MG PO QAM Duloxetine (Cymbalta) 60 Mg Capsule.dr 60 MG PO HS Enoxaparin (Lovenox) 120 Mg/0.8 Ml Syringe 120 MG SUBQ Q12 Please follow instructions of the coumadin clinic Enoxaparin (Lovenox) 100 Mg/Ml Syringe 100 MG SUBQ Q12H Fluticasone Propionate (Flonase Allergy Relief) 50 Mcg/Actuation [place].susp 9.9 ML NS DAILY Fluticasone/Salmeterol (Advair 250-50 Diskus) 60 Puff/Inh Disk 1 PUFF IH BID Furosemide (Lasix) 20 Mg Tablet 20 MG PO DAILY Ketotifen Fumarate (Zaditor) 5 Ml Drops 1 DROP OP Q12 Levothyroxine (Synthroid) 50 Mcg Tablet 50 MCG PO DAILY Magnesium Oxide (Magnesium Oxide) 400 Mg Tablet 400 MG PO Q2DAY Metformin (Glucophage) 1,000 Mg Tablet 1,000 MG PO BIDAC Montelukast (Singulair) 10 Mg Tablet 10 MG PO HS Multivits,Ca,Minerals/Iron/FA (Women's Daily Formula Caplet) 500-18-0.4 Tablet 1 EACH PO DAILY Omeprazole (Omeprazole) 40 Mg Capsule.dr 40 MG PO QAM Potassium Chloride ER (Potassium Chloride ER) 20 Meq Tablet.er 20 MEQ PO BID TAKE WITH FOOD Pramipexole Dihydrochloride (Mirapex) 0.5 Mg Tablet 0.25-0.5 MG PO HS Pregabalin (Lyrica) 200 Mg Capsule 200 MG PO TID Ranitidine (Ranitidine) 300 Mg Tablet 300 MG PO QPM Telmisartan (Micardis) 20 Mg Tablet 20 MG PO DAILY Topiramate (Topamax) 200 Mg Tablet 200 MG PO BID Trospium Chloride (Trospium Chloride) 20 Mg Tablet 20 MG PO BID Vitamin E Acetate (Vitamin E) 400 Unit Capsule 400 UNIT PO DAILY Warfarin Sodium (Warfarin Sodium) 2 Mg Tablet 5 MG PO sunday, sunday Warfarin Sodium (Warfarin Sodium) 5 Mg Tablet 7 MG PO Sun, , , fr, sat Scheduled PRN Albuterol HFA (Proair HFA) 8.5 Gm Hfa.aer.ad 2 PUFFS INHALATION Q4H PRN PRN For Wheezing Albuterol Neb Soln (Albuterol Neb Soln) 2.5 Mg/3 Ml Vial.neb 2.5 MG INHALATION Q4H PRN PRN For Wheezing Promethazine DM Syrup (Promethazine DM Syrup) 118 Ml Syrup 5 ML PO QID PRN PRN For Cough General Time Seen by MD: 14:30 Chief Complaint Chest pressure Hx Obtained From: Patient Arrived By: Ambulance Sudden in Onset?: Yes Onset Occurred: Yesterday Symptom Duration: Since onset Location: : Substernal Severity: Current: No pain currently Pertinent Negative: Pt denies other symptoms Recent Healthcare: Recent doctor visit Similar Sx Previous: No Past Medical History Past Medical History 1. Factor V Leiden with a history of pulmonary embolism and DVT, on Coumadin. 2. History of restrictive lung disease, on 2-3 L of home oxygen daily. 3. Obstructive sleep apnea, on CPAP. 4. Morbid obesity. 5. Type 2 diabetes. 6. Left foot drop. 7. Fibromyalgia. 8. History of seizures. Her last seizure she states was 10 years ago. 9. GI bleeding secondary to NSAIDs. 10. Asthma. 11. Chronic low back pain. 12. Lower extremity edema. Reports: GERD, Hypertension Past Surgical History Cardiac cath Ventral hernia repair 2006 Arthroscopy for torn R knee cartilage 1971 Green filter placement 2004 for PE Cataracts bilaterally Bladder suspension/ovarian cyst removal 2008 R ankle/leg fracture repair with pin 1987 Lateral gaze deviation realignment 196 Smoking History Never Smoker Social History Other Social History: Good social support, , Local resident Ambulatory Status Independent Review of Systems Constitutional: Reports: Chills, Fever Respiratory: Reports: Dyspnea on exertion, Non-productive cough, Shortness of breath Cardiovascular: Reports: Chest pain GI: Denies: Abdominal pain, Diarrhea, Nausea, Vomiting Complete sys rev & neg: except as marked. Ears / Nose / Throat: Reports: Sore throat Allergy / Immune: Reports: Rhinorrhea Physical Exam Initial Vital Signs Vital Signs (First) Date Time Temp Pulse Resp B/P Pulse Ox O2 Delivery O2 Flow Rate FiO2 11/11/16 14:22 36.4 107 24 114/71 100 Room Air 2 Nasal Cannula Initial VS: Reviewed Head / Eyes: Atraumatic, Normocephalic, PERRL ENT: Mucous membranes moist, Conjunctiva normal, No scleral icterus Neck: Supple, Non-tender, Full range of motion Extremities: Vascular intact, Neuro intact, No swelling, No tenderness Skin: Warm, Dry, No cyanosis Neurologic: Alert, Oriented, Nonfocal Psychiatric: Mood/affect normal, Behavior normal, Normal thought content General/Constitutional: Awake, Alert Respiratory / Chest: Breath sounds NL, Breath sounds = bilat, No respiratory distress, No rales, No rhonchi, No wheezing Cardiovascular: Heart rate NL, Regular rhythm, Heart sounds NL, No murmurs, Peripheral circulation NL, Pulses = bilaterally, No gross BP differential Abdomen: Soft, Non-tender, McBurney's non-tender, No guarding, No rebound, BS normoactive, No distention, No hernia, No palpable mass Interpretation & Diagnostics Lab Results Interpretation Result Diagram: 11/11/16 1604 11/11/16 1604 Test 11/11/16 16:04 11/11/16 16:08 White Blood Count 8.2th/mm3 (3.8-10.1) Red Blood Count 4.20mil/mm3 (3.90-5.20) Hemoglobin 13.1g/dL (12.0-15.6) Hematocrit 40.9% (35.0-46.0) Mean Corpuscular Volume 97.4fL (81-100) Mean Corpuscular Hemoglobin 31.2pg (27.0-35.0) Mean Corpuscular Hemoglobin Concent 32.0% (32.0-37.0) Red Cell Distribution Width 14.3% (12.3-15.4) Platelet Count 231bil/L (150-400) Neutrophils (%) (Auto) 63.5% (40-74) Lymphocytes (%) (Auto) 22.6% (14-46) Monocytes (%) (Auto) 12.4% (4-12) Eosinophils (%) (Auto) 1.2% (0-5) Basophils (%) (Auto) 0.1% (0-3) D-Dimer < 0.5mg/L (<0.50) Sodium Level 136mEq/L (134-144) Potassium Level 4.0mEq/L (3.5-5.2) Chloride Level 96mEq/L (97-108) Carbon Dioxide Level 27mmol/L (18-29) Blood Urea Nitrogen 15mg/dL (8-27) Creatinine 0.82mg/dL (0.57-1.00) Estimat Glomerular Filtration Rate 102mL/min (>59) Glucose Level 129mg/dL (60-99) Calcium Level 9.0mg/dL (8.5-10.1) Total Bilirubin 0.3mg/dL (0.0-1.2) Aspartate Amino Transf (AST/SGOT) 26U/L (0-50) Alanine Aminotransferase (ALT/SGPT) 22U/L (0-32) Alkaline Phosphatase 65U/L (25-165) Troponin T < 0.010ug/L (0.0-0.011) Pro-B-Type Natriuretic Peptide 103.7pg/mL (0-287) Total Protein 7.5g/dL (6.4-8.4) Albumin 4.1g/dL (3.4-5.0) Hold Rosenthal Top Tube Received (Received) ECG Interpretation ECG Interpretation: sinus rhythm at a rate of 102 inferior infarct, old Time: 14:40 Interpreted by: ED physician X-Ray Chest Interpretation Chest Xray Interpretation: IMPRESSION: Minimal left costophrenic angle blunting suggestive of trace effusion. Dictated by: Lorrie Estrada M.D. on 11/11/2016 at 15:28 Approved by: Lorrie Estrada M.D. on 11/11/2016 at 15:28 Re-Eval/Medical Decision Med Decision/Clinical Course 61-year-old female history of restrictive lung disease, DVTs presenting sent in by primary doctor for chest pain, cough, runny nose times one day. Vital signs stable here. Her d-dimer is negative. Chest x-ray clear. EKG no signs ischemia. Troponins negative. Did not suspect acute cardiac ischemia given normal troponins and normal EKG in the setting of chest pain 1 day. More likely viral URI. Do not suspect PE given normal d-dimer. We will discharge home with cough syrup and return precautions. Recommend follow-up with primary doctor on Sunday. Return precautions given. Patient is comfortable with this plan. Counseled Regarding: Diagnosis, Lab results, Need for follow-up Discharge & Departure Primary Impression: Non-cardiac chest pain Disposition: Home Discharge Condition All VS Reviewed: Yes Condition: Stable Patient Instructions: Chest Pain (ED) Additional Instructions: Your workup was reassuring today. Follow-up with your primary care provider. Return to the emergency department for any new or worsening symptoms Do not drive, consume alcohol, or operate machinery while taking the prescribed narcotic medication. Referrals: Ryan Castillo DO (PCP) Scribe Attestation Portions of this note were transcribed by Nadine Buck. I, Dr. Nichole personally performed the history, physical exam and medical decision-making; I reviewed and confirmed the accuracy of the information in the transcribed note. Signed by: pollo Curran. 11/11/2016, 15:00. Federico Nichole MD Nov 11, 2016 14:31 NADINE BUCK Nov 11, 2016 14:41
[2016-11-11] MEDS ORDERED: Ondansetron 2 mg/mL 2 mL Inj IVPUSH ONE (15:20)
--- NOTE | 2016-11-11 15:30 | DRSVH ---
PROCEDURE: X-RAY CHEST ONE VIEW, PORTABLE ([id number]) INDICATIONS: cough TECHNIQUE: One view of the chest was acquired. COMPARISON: [facility], CR, XR CHEST 2VW, 10/28/2016, 14:25. FINDINGS: Surgical changes and devices: None. Lungs and pleura: There is minimal blunting of the left costophrenic angle. Mediastinum: Mediastinal contours appear normal. Heart size is normal. Bones and chest wall: No suspicious bony lesions. Overlying soft tissues appear unremarkable. IMPRESSION: Minimal left costophrenic angle blunting suggestive of trace effusion. Dictated by: Lorrie Estrada M.D. on 11/11/2016 at 15:28 Approved by: Lorrie Estrada M.D. on 11/11/2016 at 15:28
[2016-11-11 16:17] LABS: BASOPHILS % (AUTO) 0.1 % (0-3); EOSINOPHILS % (AUTO) 1.2 % (0-5); MONOCYTES % (AUTO) 12.4 % (4-12); Mean Corpuscular Hemoglobin 31.2 pg (27.0-35.0); Mean Corpuscular Volume 97.4 fL (81-100); NEUTROPHILS % (AUTO) 63.5 % (40-74); Platelet Count 231 bil/L (150-400)
[2016-11-11 16:20] VITALS: BP 92/59; PULSE 95; RESP 17; O2SAT 93
[2016-11-11 16:35] LABS: TROPONIN T < 0.010 ug/L (0.0-0.011)
[2016-11-11] MEDS ORDERED: D-ME118S8 PO (17:06)
[2016-11-11 17:17] VITALS: BP 106/57; PULSE 88; RESP 13; O2SAT 96
[2017-02-26] MEDS ORDERED: RANI75TA21 PO (13:29)
== END 2016-11-11 17:37 | disposition home or self-care (01) ==
LOC: SED 14:13
DX: R07.89 Other chest pain (principal); G47.33 Obstructive sleep apnea (adult) (pediatric); E66.01 Morbid (severe) obesity due to excess calories; K21.9 Gastro-esophageal reflux disease without esophagitis; I10 Essential (primary) hypertension; E11.9 Type 2 diabetes mellitus without complications; J45.909 Unspecified asthma, uncomplicated; Z87.09 Personal history of other diseases of the respiratory system; Z86.718 Personal history of other venous thrombosis and embolism; Z86.711 Personal history of pulmonary embolism; Z68.45 Body mass index [BMI] 70 or greater, adult; Z79.01 Long term (current) use of anticoagulants; Z79.84 Long term (current) use of oral hypoglycemic drugs; Z88.6 Allergy status to analgesic agent; Z88.8 Allergy status to other drugs, medicaments and biological substances
CPT/HCPCS: 71010; 80053; 83880; 84484; 85025; 85379; 87804; 93005; 96374; 96375; 99285; J2270; J2405; Q0169

== ENCOUNTER 2017-03-28 17:28 | Emergency (ER) | payer OTHER ==
[~2017-03-28] VITALS: Ht 165.1 cm; Wt 113.6 kg
[~2017-03-28 17:28] MED LIST changes: -FURO-129 PO; -KETO5DRO68 OP; -LOV100 SUBQ; -LOV120 SUBQ; -OMEP40CA36 PO; -POTA-62 PO; -PRAM0.5T3 PO; +RANI75TA21 PO; -TROS20TA4 PO
[2017-03-28 17:46] VITALS: BP 149/78; PULSE 20; RESP 21; O2SAT 97
[2017-03-28 18:04] LABS: BASOPHILS % (AUTO) 0.1 % (0-3); EOSINOPHILS % (AUTO) 1.4 % (0-5); MONOCYTES % (AUTO) 8.6 % (4-12); Mean Corpuscular Hemoglobin 31.1 pg (27.0-35.0); Mean Corpuscular Volume 94.1 fL (81-100); NEUTROPHILS % (AUTO) 57.8 % (40-74); Platelet Count 229 bil/L (150-400)
[2017-03-28] MEDS ORDERED: 0.9% Sodium Chloride 1,000 ML IV ONE ×2 (18:20→21:05)
[2017-03-28 18:34] LABS: INR 4.84 ratio
[2017-03-28 18:41] LABS: TROPONIN T < 0.010 ug/L (0.0-0.011)
--- NOTE | 2017-03-28 18:55 | ED.REPORT ---
HPI-General Illness Date of Service Mar 28, 2017 ED Provider: Enmanuel Hines MD 61 y/o female with a history of Factor V Leiden, pulmonary embolism and DVT (on Coumadin), DM Type II (on Metformin; doesnt use Insulin), HTN, obesity and restrictive lung disease is sent to the ED from residency clinic due to hyperglycemia today. She reports drinking cranberry juice but did not think she drank enough to raise her level. The clinic recorded her glucose level at 500. The pt states she went to the clinic as she suspected a yeast infection and has been feeling fatigued for the last month. Associated sx include dysuria, perineal itching, abnormal vaginal discharge with a foul smell, increased urinary frequency, mild subjective fever and suprapubic abdominal pain. She denies chest pain. She denies allergic reaction to insulin and missing any metformin doses. PCP: Dr. Lemus Nursing Notes Stated Complaint: HIGH BLOOD SUGAR/SENT FROM RESIDENCY CLINIC Chief Complaint: General Complaint Nursing Notes Reviewed: Yes Allergies: Coded Allergies: NSAIDS (Non-Steroidal Anti-Inflamma (Verified Allergy, Intermediate, ) stomach bleed Penicillins (Verified Allergy, Intermediate, rash , hives, 03/28/17) Insulins - Human (Verified Allergy, Unknown, Rash, 11/11/16) Scheduled Atorvastatin (Lipitor) 10 Mg Tab 10 MG PO DAILY Bupropion ER (Bupropion ER) 300 Mg Tab.er.24h 300 MG PO QAM Calcium Carbonate/Vitamin D3 (Calcium 600 + Vit D 400 Softgl) 1 Each Capsule 1 TAB PO DAILY Cephalexin (Cephalexin) 500 Mg Capsule 500 MG PO QID Cyanocobalamin (Vitamin B-12) (Vitamin B-12) 1,000 Mcg Tablet 1,000 MCG PO DAILY Diltiazem ER (Diltiazem ER) 120 Mg Cap.er.24h 120 MG PO QAM Duloxetine (Cymbalta) 60 Mg Capsule.dr 60 MG PO HS Fluticasone Propionate (Flonase Allergy Relief) 50 Mcg/Actuation [place].susp 9.9 ML NS DAILY Fluticasone/Salmeterol (Advair 250-50 Diskus) 60 Puff/Inh Disk 1 PUFF IH BID Levothyroxine (Synthroid) 50 Mcg Tablet 50 MCG PO DAILY Magnesium Oxide (Magnesium Oxide) 400 Mg Tablet 400 MG PO Q2DAY Metformin (Glucophage) 1,000 Mg Tablet 1,000 MG PO BIDAC Montelukast (Singulair) 10 Mg Tablet 10 MG PO HS Multivits,Ca,Minerals/Iron/FA (Women's Daily Formula Caplet) 500-18-0.4 Tablet 1 EACH PO DAILY Pregabalin (Lyrica) 200 Mg Capsule 200 MG PO TID Ranitidine (Ranitidine) 300 Mg Tablet 300 MG PO QPM Ranitidine (Zantac OTC) 75 Mg Tablet 75 MG PO DAILY Telmisartan (Micardis) 20 Mg Tablet 20 MG PO DAILY Topiramate (Topamax) 200 Mg Tablet 200 MG PO BID Vitamin E Acetate (Vitamin E) 400 Unit Capsule 400 UNIT PO DAILY Warfarin Sodium (Warfarin Sodium) 2 Mg Tablet 7 MG PO S,S,SUN,WED,THR Warfarin Sodium (Warfarin Sodium) 5 Mg Tablet 10 MG PO MON, FRI Scheduled PRN Albuterol HFA (Proair HFA) 8.5 Gm Hfa.aer.ad 2 PUFFS INHALATION Q4H PRN PRN For Wheezing Albuterol Neb Soln (Albuterol Neb Soln) 2.5 Mg/3 Ml Vial.neb 2.5 MG INHALATION Q4H PRN PRN For Wheezing General Time Seen by MD: 18:15 Chief Complaint Other (fatigue) Hx Obtained From: Patient Arrived By: Walk-in Onset Occurred: More than a week ago... (1 month) Symptom Duration: Since onset Location: : Abdomen Quality: Painful Radiation: : Does not radiate Severity: Current: Mild Severity: Maximum: Mild Recent Healthcare: Recent doctor visit Similar Sx Previous: No Past Medical History Past Medical History 1. Factor V Leiden with a history of pulmonary embolism and DVT, on Coumadin. 2. History of restrictive lung disease, on 2-3 L of home oxygen daily. 3. Obstructive sleep apnea, on CPAP. 4. Morbid obesity. 5. Type 2 diabetes. 6. Left foot drop. 7. Fibromyalgia. 8. History of seizures. Her last seizure she states was 10 years ago. 9. GI bleeding secondary to NSAIDs. 10. Asthma. 11. Chronic low back pain. 12. Lower extremity edema. Reports: GERD, Hypertension Past Surgical History Cardiac cath Ventral hernia repair 2005 Arthroscopy for torn R knee cartilage 1971 Green filter placement 2004 for PE Cataracts bilaterally Bladder suspension/ovarian cyst removal 2008 R ankle/leg fracture repair with pin 1987 Lateral gaze deviation realignment 196 Smoking History Never Smoker Social History Other Social History: Good social support, , Lives with children, Local resident Ambulatory Status Independent Review of Systems Full Review of Systems Constitutional: Reports: Fatigue, Fever (mild, subjective) Cardiovascular: Reports: Chest pain GI: Reports: Abdominal pain (suprapubic) Female: Reports: Dysuria, Urinary frequency, Vaginal discharge Complete sys rev & neg: except as marked. Physical Exam Vital Signs Vital Signs Date Time Temp Pulse Resp B/P Pulse Ox O2 Delivery O2 Flow Rate FiO2 03/29/17 01:16 36.7 87 17 144/77 98 Room Air 03/28/17 23:43 99 18 132/61 97 Nasal Cannula 2 03/28/17 19:45 36.8 102 19 146/52 97 Nasal Cannula 2 03/28/17 17:46 36.6 20 21 149/78 97 Nasal Cannula 2 Initial VS: Reviewed Head / Eyes: Atraumatic, Normocephalic Neck: Supple, Non-tender, Full range of motion Abdomen / GI: Soft, Non-tender Extremities: Vascular intact, Neuro intact, No swelling, No tenderness Skin: Warm, Dry, No cyanosis Neurologic: Alert, Oriented, Nonfocal General/Constitutional: Awake, Alert, No acute distress, Cooperative Respiratory / Chest: Atraumatic, Breath sounds NL, Breath sounds = bilat, No respiratory distress, No rales, No rhonchi, No wheezing Cardiovascular: Regular rhythm, Heart sounds NL, No gallop, No murmurs, No rubs Heart Rate / Rhythm: Positive: Tachycardia Female Genitourinary: Management Lecturer present, Atraumatic Inflammed vulva with white discharge. Interpretation & Diagnostics Lab Results Interpretation Result Diagram: 03/28/17 1755 03/28/17 1755 Test 03/28/17 17:55 03/28/17 21:17 03/28/17 22:08 White Blood Count 8.0th/mm3 (3.8-10.1) Red Blood Count 4.41mil/mm3 (3.90-5.20) Hemoglobin 13.7g/dL (12.0-15.6) Hematocrit 41.5% (35.0-46.0) Mean Corpuscular Volume 94.1fL (81-100) Mean Corpuscular Hemoglobin 31.1pg (27.0-35.0) Mean Corpuscular Hemoglobin Concent 33.0% (32.0-37.0) Red Cell Distribution Width 13.8% (12.3-15.4) Platelet Count 229bil/L (150-400) Neutrophils (%) (Auto) 57.8% (40-74) Lymphocytes (%) (Auto) 31.9% (14-46) Monocytes (%) (Auto) 8.6% (4-12) Eosinophils (%) (Auto) 1.4% (0-5) Basophils (%) (Auto) 0.1% (0-3) Prothrombin Time 53.5sec (8.1-12.5) Prothromb Time International Ratio 4.84ratio Sodium Level 132mEq/L (134-144) Potassium Level 4.4mEq/L (3.5-5.2) Chloride Level 92mEq/L (97-108) Carbon Dioxide Level 22mmol/L (18-29) Blood Urea Nitrogen 17mg/dL (8-27) Creatinine 0.88mg/dL (0.57-1.00) Estimat Glomerular Filtration Rate 94mL/min (>59) Glucose Level 582mg/dL (60-99) Calcium Level 9.6mg/dL (8.5-10.1) Total Bilirubin 0.3mg/dL (0.0-1.2) Aspartate Amino Transf (AST/SGOT) 36U/L (0-50) Alanine Aminotransferase (ALT/SGPT) 36U/L (0-32) Alkaline Phosphatase 99U/L (25-165) Troponin T < 0.010ug/L (0.0-0.011) Total Protein 7.8g/dL (6.4-8.4) Albumin 3.8g/dL (3.4-5.0) Urine Color Yellow (YELLOW) Urine Appearance Clear (CLEAR,HAZY) Urine pH 6.0 (5.0-8.0) Urine Specific [place] 1.005 (1.003-1.035) Urine Protein Negativemg/dL (NEG,TRACE) Urine Glucose (UA) 500mg/dL (NEGATIVE) Urine Ketones Negativemg/dL (NEGATIVE) Urine Occult Blood Negative (NEGATIVE) Urine Nitrite Negative (NEGATIVE) Urine Bilirubin Negative (NEGATIVE) Urine Urobilinogen Normalmg/dL (NORMAL) Urine Leukocyte Esterase Negative (NEGATIVE) Urine RBC 0-2/hpf (0-2) Urine WBC 0-5/hpf (0-5) Urine Epithelial Cells None/hpf (NONE-MOD) Urine Crystals None seen (NONE SEEN) Urine Bacteria Many/hpf (NONE-FEW) Urine Hyaline Casts None/lpf (NONE) Urine Granular Casts None seen (NONE SEEN) Urine Waxy Casts None seen (NONE SEEN) Urine Red Blood Cell Casts None seen (NONE SEEN) Urine White Blood Cell Casts None seen (NONE SEEN) Urine Mucus None seen (None Seen) Urine Trichomonas None seen (NONE SEEN) Urine Yeast None (NONE SEEN) Urinalysis Comment None Urine Culture Reflexed Indicated Lactic Acid Level 2.2mmol/L (0.4-2.0) ECG Interpretation ECG Interpretation: Normal sinus rhtyhm. Rate 95. Low voltage, precordial leads Time: 19:06 Interpreted by: ED physician Normal ECG Interpretation: Normal ECG w/ rate of... (95), Normal sinus rhythm Re-Eval/Medical Decision Med Decision/Clinical Course 61-year-old type II diabetic with hyperglycemia. May have a urinary tract infection given the bacteria in urine, also appears to have vaginal candidiasis. Blood sugar came down with IV fluids. We gave rocephin and diflucan. Source of Hx: Old records Time of Eval: 21:39 Patient Status: Condition unchanged Re-Evaluation/Progress Note: Rechecked pt. She states she still does not feel well. Time of Eval: 00:20 Patient Status: Condition improved Re-Evaluation/Progress Note: Rechecked pt. She reports feeling better. Discussed lab results, diagnosis and plan to discharge. The pt understands and agrees with the plan. All questions addressed. Counseled Regarding: Diagnosis, Lab results, Need for follow-up, When/why to return to ED Discharge & Departure Primary Impression: Hyperglycemia Additional Impressions: Urinary tract infection Urinary tract infection type: acute cystitis Hematuria presence: without hematuria Qualified Code: N30.00 - Acute cystitis without hematuria Lou vaginitis Excessive anticoagulation Disposition: Home Discharge Condition All VS Reviewed: Yes Condition: Stable Patient Instructions: Urinary Tract Infection in Women (ED) Additional Instructions: Emergency Department evaluation included interview, examination labs, treatment with IV fluids and antibiotics. We also gave fluconazole orally for a yeast infection. There is concern for a urinary tract infection, gave intravenous Rocephin which will cover for 24 hours, start cephalexin tomorrow. Take as directed. Follow-up with your non destructive evaluation technician tomorrow as planned. Get adequate fluids and continue previous home medications with the exception of holding warfarin 3 days. Follow-up for a repeat INR on Sunday. Return emergency Department for fevers shaking chills vomiting or abdominal pain , shortness of breath or chest pain. Referrals: Paty Lemus DO (PCP) Shadeibclaudia Attestation Portions of this note were transcribed by Rufino Ritter. I, , personally performed the history, physical exam and medical decision- making;I reviewed and confirmed the accuracy of the information in the transcribed note. Signed by Stephanie Cordon. 03/29/17 00:39 copies to: Paty Lemus Donald L MD Mar 28, 2017 18:55 Rufino Ritter Mar 28, 2017 19:06
[2017-03-28 19:45] VITALS: BP 146/52; PULSE 102; RESP 19; O2SAT 97
[2017-03-28 21:32] LABS: APPEARANCE,URINE CLEAR (CLEAR,HAZY); COLOR,URINE YELLOW (YELLOW); OCCULT BLOOD,URINE NEGATIVE (NEGATIVE); UROBILINOGEN,URINE NORMAL (NORMAL)
[2017-03-28] MEDS ORDERED: cefTRIAXone Inj 2,000 MG in Dextrose 5% Minibag Plus 50 ML IV ONE (21:40)
[2017-03-28 23:43] VITALS: BP 132/61; PULSE 99; RESP 18; O2SAT 97
[2017-03-29] MEDS ORDERED: CEPH500C PO (00:36)
[2017-03-29 01:16] VITALS: BP 144/77; PULSE 87; RESP 17; O2SAT 98
== END 2017-03-29 01:17 | disposition home or self-care (01) ==
LOC: SED 17:28
DX: E11.65 Type 2 diabetes mellitus with hyperglycemia (principal); N30.00 Acute cystitis without hematuria; B96.20 Unspecified Escherichia coli [E. coli] as the cause of diseases classified elsewhere; B37.3 Candidiasis of vulva and vagina; R50.9 Fever, unspecified; I10 Essential (primary) hypertension; J45.909 Unspecified asthma, uncomplicated; K21.9 Gastro-esophageal reflux disease without esophagitis; M79.7 Fibromyalgia; G47.33 Obstructive sleep apnea (adult) (pediatric); Z95.5 Presence of coronary angioplasty implant and graft; Z79.01 Long term (current) use of anticoagulants; Z79.84 Long term (current) use of oral hypoglycemic drugs; Z88.0 Allergy status to penicillin; Z88.8 Allergy status to other drugs, medicaments and biological substances
CPT/HCPCS: 36415; 80053; 81000; 82948; 83605; 84484; 85025; 85610; 87040; 87077; 87086; 87088; 87186; 93005; 96361; 96365; 99285; G0463; J0696; J7030

== ENCOUNTER 2017-06-11 16:43 | Emergency (ER) | payer OTHER ==
[~2017-06-11] VITALS: Ht 165.1 cm; Wt 120.0 kg
[~2017-06-11 16:43] MED LIST changes: +CEPH500C PO
[2017-06-11 16:48] VITALS: BP 140/81; PULSE 89; RESP 20; O2SAT 98
--- NOTE | 2017-06-11 18:04 | ED.REPORT ---
HPI-Abd Pain F 40 and Over Date of Service Jun 11, 2017 ED Provider: Sunil Thompson DO The patient is a 62 year old female with a hx of HTN, diabetes and pulmonary embolism on Coumadin presenting to the ED from the residency clinic complaining of right flank pain onset 3 days ago. She claims that the pain hurts immediately after urinating. Associated symptoms include pain that radiates into her lower right back, fever and hematuria. She denies chills, nausea, vision changes, SOB, or wheezing. Nursing Notes Stated Complaint: KIDNEY STONES Chief Complaint: Female Abdominal Pain Nursing Notes Reviewed: Yes Allergies: Coded Allergies: NSAIDS (Non-Steroidal Anti-Inflamma (Verified Allergy, Intermediate, ) stomach bleed Penicillins (Verified Allergy, Intermediate, rash , hives, 03/28/17) Insulins - Human (Verified Allergy, Unknown, Rash, 11/11/16) Scheduled Atorvastatin (Lipitor) 10 Mg Tab 10 MG PO DAILY Bupropion ER (Bupropion ER) 300 Mg Tab.er.24h 300 MG PO QAM Calcium Carbonate/Vitamin D3 (Calcium 600 + Vit D 400 Softgl) 1 Each Capsule 1 TAB PO DAILY Cephalexin (Cephalexin) 500 Mg Capsule 500 MG PO QID Cyanocobalamin (Vitamin B-12) (Vitamin B-12) 1,000 Mcg Tablet 1,000 MCG PO DAILY Diltiazem ER (Diltiazem ER) 120 Mg Cap.er.24h 120 MG PO QAM Duloxetine (Cymbalta) 60 Mg Capsule.dr 60 MG PO HS Fluticasone Propionate (Flonase Allergy Relief) 50 Mcg/Actuation [place].susp 9.9 ML NS DAILY Fluticasone/Salmeterol (Advair 250-50 Diskus) 60 Puff/Inh Disk 1 PUFF IH BID Levothyroxine (Synthroid) 50 Mcg Tablet 50 MCG PO DAILY Magnesium Oxide (Magnesium Oxide) 400 Mg Tablet 400 MG PO Q2DAY Metformin (Glucophage) 1,000 Mg Tablet 1,000 MG PO BIDAC Montelukast (Singulair) 10 Mg Tablet 10 MG PO HS Multivits,Ca,Minerals/Iron/FA (Women's Daily Formula Caplet) 500-18-0.4 Tablet 1 EACH PO DAILY Pregabalin (Lyrica) 200 Mg Capsule 200 MG PO TID Ranitidine (Ranitidine) 300 Mg Tablet 300 MG PO QPM Ranitidine (Zantac OTC) 75 Mg Tablet 75 MG PO DAILY Telmisartan (Micardis) 20 Mg Tablet 20 MG PO DAILY Topiramate (Topamax) 200 Mg Tablet 200 MG PO BID Vitamin E Acetate (Vitamin E) 400 Unit Capsule 400 UNIT PO DAILY Warfarin Sodium (Warfarin Sodium) 2 Mg Tablet 7 MG PO S,S,TUE,WED,THR Warfarin Sodium (Warfarin Sodium) 5 Mg Tablet 10 MG PO MON, FRI Scheduled PRN Albuterol HFA (Proair HFA) 8.5 Gm Hfa.aer.ad 2 PUFFS INHALATION Q4H PRN PRN For Wheezing Albuterol Neb Soln (Albuterol Neb Soln) 2.5 Mg/3 Ml Vial.neb 2.5 MG INHALATION Q4H PRN PRN For Wheezing General Time Seen by MD: 18:30 Chief Complaint Flank pain right Hx Obtained From: Patient Location: : Back (lower right) Associated with: Reports: Fever, Hematuria Pertinent Negative: Pt denies other symptoms Exacerbated by: Urination (after urinating) Recent Healthcare: No recent hospitalization, Recent doctor visit Similar Sx Previous: Yes Past Medical History Past Medical History 1. Factor V Leiden with a history of pulmonary embolism and DVT, on Coumadin. 2. History of restrictive lung disease, on 2-3 L of home oxygen daily. 3. Obstructive sleep apnea, on CPAP. 4. Morbid obesity. 5. Type 2 diabetes. 6. Left foot drop. 7. Fibromyalgia. 8. History of seizures. Her last seizure she states was 10 years ago. 9. GI bleeding secondary to NSAIDs. 10. Asthma. 11. Chronic low back pain. 12. Lower extremity edema. Reports: GERD, Hypertension Past Surgical History Cardiac cath Ventral hernia repair 2006 Arthroscopy for torn R knee cartilage 1971 Green filter placement 2004 for PE Cataracts bilaterally Bladder suspension/ovarian cyst removal 2008 R ankle/leg fracture repair with pin 1987 Lateral gaze deviation realignment 196 Smoking History Never Smoker Social History Other Social History: Good social support, , Lives with children, Local resident Ambulatory Status Independent Review of Systems Constitutional: Reports: Fever, Denies: Chills Respiratory: Denies: Shortness of breath, Wheezing GI: Denies: Nausea Female: Reports: Flank pain, Hematuria (bright red), Denies: Dysuria Musculoskeletal: Reports: Back pain (right) Complete sys rev & neg: except as marked. Eyes: Denies: Visual loss bilateral Physical Exam Vital Signs Vital Signs (First) Date Time Temp Pulse Resp B/P Pulse Ox O2 Delivery O2 Flow Rate FiO2 06/11/17 16:48 35.4 89 20 140/81 98 Nasal Cannula Head / Eyes: Atraumatic, Normocephalic, PERRL Neck: Supple, Non-tender, Full range of motion Extremities: No swelling, No tenderness Skin: Warm, Dry, No cyanosis Neurologic: Alert, Oriented, Nonfocal General/Constitutional: Awake, Alert Respiratory / Chest: Atraumatic, Breath sounds NL, Breath sounds = bilat, No respiratory distress mild distress Cardiovascular: Heart rate NL, Regular rhythm, Heart sounds NL Abdomen: Atraumatic, Soft, Non-tender Back: Atraumatic Right CVA tenderness to percussion Interpretation & Diagnostics Lab Results Interpretation Result Diagram: 06/11/17 19306/11/171930 Test 06/11/17 18:25 06/11/17 19:31 06/11/17 19:45 Urine Color Yellow (YELLOW) Urine Appearance Hazy (CLEAR,HAZY) Urine pH 6.5 (5.0-8.0) Urine Specific [place] 1.020 (1.003-1.035) Urine Protein Negativemg/dL (NEG,TRACE) Urine Glucose (UA) Negativemg/dL (NEGATIVE) Urine Ketones Negativemg/dL (NEGATIVE) Urine Occult Blood Negative (NEGATIVE) Urine Nitrite Positive (NEGATIVE) Urine Bilirubin Negative (NEGATIVE) Urine Urobilinogen Normalmg/dL (NORMAL) Urine Leukocyte Esterase Negative (NEGATIVE) Urine RBC 0-2/hpf (0-2) Urine WBC 0-5/hpf (0-5) Urine Epithelial Cells Few/hpf (NONE-MOD) Urine Crystals None seen (NONE SEEN) Urine Bacteria Many/hpf (NONE-FEW) Urine Hyaline Casts None/lpf (NONE) Urine Granular Casts None seen (NONE SEEN) Urine Waxy Casts None seen (NONE SEEN) Urine Red Blood Cell Casts None seen (NONE SEEN) Urine White Blood Cell Casts None seen (NONE SEEN) Urine Mucus Present (None Seen) Urine Trichomonas None seen (NONE SEEN) Urine Yeast None (NONE SEEN) Urinalysis Comment None Urine Culture Reflexed Indicated White Blood Count 7.9th/mm3 (3.8-10.1) Red Blood Count 4.23mil/mm3 (3.90-5.20) Hemoglobin 13.2g/dL (12.0-15.6) Hematocrit 41.4% (35.0-46.0) Mean Corpuscular Volume 97.9fL (81-100) Mean Corpuscular Hemoglobin 31.2pg (27.0-35.0) Mean Corpuscular Hemoglobin Concent 31.9% (32.0-37.0) Red Cell Distribution Width 13.9% (12.3-15.4) Platelet Count 219bil/L (150-400) Neutrophils (%) (Auto) 50.9% (40-74) Lymphocytes (%) (Auto) 38.0% (14-46) Monocytes (%) (Auto) 8.4% (4-12) Eosinophils (%) (Auto) 2.1% (0-5) Basophils (%) (Auto) 0.3% (0-3) Prothrombin Time 22.4sec (8.1-12.5) Prothromb Time International Ratio 2.06ratio Sodium Level 144mEq/L (134-144) Potassium Level 4.4mEq/L (3.5-5.2) Chloride Level 106mEq/L (97-108) Carbon Dioxide Level 24mmol/L (18-29) Blood Urea Nitrogen 16mg/dL (8-27) Creatinine 0.82mg/dL (0.57-1.00) Estimat Glomerular Filtration Rate 102mL/min (>59) Glucose Level 106mg/dL (60-99) Calcium Level 9.4mg/dL (8.5-10.1) Magnesium Level 2.0mg/dL (1.6-2.6) Total Bilirubin 0.2mg/dL (0.0-1.2) Aspartate Amino Transf (AST/SGOT) 23U/L (0-50) Alanine Aminotransferase (ALT/SGPT) 17U/L (0-32) Alkaline Phosphatase 60U/L (25-165) Total Protein 8.1g/dL (6.4-8.4) Albumin 4.3g/dL (3.4-5.0) Hold [place] Top Tube Received (Received) CT Abd / Pelvis Interpretation IMPRESSION: 1. No renal stone or hydronephrosis. 2. Colonic diverticulosis. No evidence for acute diverticulitis. 3. Small fat-containing periumbilical ventral hernia. Dictated by: Soniya Sims M.D. on 06/11/2017 at 19:27 Study type: Abdominal CT no contrast Interpretation / Wet Read by: Interpret - Radiologist Re-Eval/Medical Decision Re-Evaluation/Progress : Time of Eval: 21:17 Re-Evaluation/Progress Note: Patient rechecked. Discussed lab and CT results. Recommended to follow up with PCP. Counseled Regarding: Diagnosis, Lab results, Need for follow-up, When/why to return to ED Discharge & Departure Primary Impression: Flank pain Disposition: Home Discharge Condition All VS Reviewed: Yes Condition: Improved Patient Instructions: Acute Abdominal Pain (ED) Additional Instructions: Thank you for entrusting us with your care today. Your labs and CT scans were normal, reassuring, and did not show any evidence of a kidney stone. You can also try taking ibuprofen for pain. Use [place] as needed for breakthrough pain. Your CT scan did show evidence of a periumbilical ventral hernia. This is an incidental finding and and should not be causing you any problems, but you can follow up with your primary care physician in regards to this. Return to the emergency department for fever, vomiting, increasing pain or any new or concerning symptoms to you. Referrals: Paty Lemus DO (PCP) Scribe Attestation Portions of this note were transcribed by Elvira Sargent and Antony Curiel. I, Dr. Thompson personally performed the history, physical exam and medical decision -making; I reviewed and confirmed the accuracy of the information in the transcribed note. Signed by: Stephanie Parrish, 06/11/2017 copies to: Paty Lemus Gary R DO Jun 11, 2017 18:04 Jun 11, 2017 18:38 Nargis Sargent Jun 11, 2017 20:29 transcribed note. Signed by: Stephanie Parrish, 06/11/2017 copies to: Paty Lemus Gary R DO Jun 11, 2017 18:04 Jun 11, 2017 18:38 Nargis Sargent Jun 11, 2017 20:29
[2017-06-11] MEDS ORDERED: 0.9% Sodium Chloride 1,000 ML IV ONE (18:34)
[2017-06-11] MEDS ORDERED: Ondansetron 2 mg/mL 2 mL Inj IVPUSH PRN (18:35)
[2017-06-11] MEDS ORDERED: HYDROmorphone 0.5 mg/0.5 mL iSecure Syringe IVPUSH PRN (18:35)
[2017-06-11 18:57] LABS: APPEARANCE,URINE HAZY (CLEAR,HAZY); COLOR,URINE YELLOW (YELLOW); OCCULT BLOOD,URINE NEGATIVE (NEGATIVE); PH,URINE 6.5 (5.0-8.0); UROBILINOGEN,URINE NORMAL (NORMAL)
[2017-06-11 19:35] LABS: BASOPHILS % (AUTO) 0.3 % (0-3); EOSINOPHILS % (AUTO) 2.1 % (0-5); MONOCYTES % (AUTO) 8.4 % (4-12); Mean Corpuscular Hemoglobin 31.2 pg (27.0-35.0); Mean Corpuscular Volume 97.9 fL (81-100); NEUTROPHILS % (AUTO) 50.9 % (40-74); Platelet Count 219 bil/L (150-400)
--- NOTE | 2017-06-11 19:38 | DRSVH ---
PROCEDURE: CT KUB ([id number]) INDICATIONS: 62 year-old woman with hematura and right flank pain. TECHNIQUE: Noncontrast 5 mm thick sections acquired from the diaphragms to the symphysis. 5 mm thick coronal an d sagittal reformats were then performed. For radiation dose reduction, the following was used: aut omated exposure control, adjustment of mA and/or kV according to patient size. COMPARISON: [facility], CT, CT KUB, 01/19/2016, 19:16. FINDINGS: Image quality: Excellent. Lung bases: Lung bases are clear. Subpleural lipomatosis, right greater left. Heart size is normal. Urinary system: Both kidneys are normal in size. No kidney stones. No hydronephrosis or perinephri c fat stranding. Both ureters appear non-dilated throughout their expected courses. Bladder wall th ickness is normal; no calcified bladder stones. Atrophic uterus. No adnexal mass. No pathological fr ee fluid. Other solid organs: Liver and spleen are normal in size. There is a calcified granuloma is seen. Ga llbladder is normal. Pancreas is normal in contours. No adrenal nodules. Peritoneum and bowel: Unenhanced bowel loops demonstrate normal wall thickness and caliber. There a re numerous colonic diverticula. No free fluid or air. Mild mesenteric stranding is noted, unchanged . Nodes and vessels: No retroperitoneal or mesenteric adenopathy by size criteria. Aorta and inferior vena cava are normal in caliber. There is an IVC filter. Abdominal wall: A fat-containing periumbilical ventral hernia is present as seen on the last exam. Pelvis: No free pelvic fluid. No inguinal hernias or adenopathy. Bones: No suspicious bony lesions. No vertebral body compression fractures. IMPRESSION: 1. No renal stone or hydronephrosis. 2. Colonic diverticulosis. No evidence for acute diverticulitis. 3. Small fat-containing periumbilical ventral hernia. Dictated by: Soniya Sims M.D. on 06/11/2017 at 19:27 Approved by: Soniya Sims M.D. on 06/11/2017 at 19:36
[2017-06-11 19:51] LABS: INR 2.06 ratio
[2017-06-11 21:00] VITALS: BP 115/78; PULSE 71; RESP 16; O2SAT 98
[2017-06-11] MEDS ORDERED: _HYDROcodone/APAP 5-325 mg Tablet PO PRN (21:20)
[2017-06-11 22:00] VITALS: BP 124/69; PULSE 74; RESP 16; O2SAT 98
[2017-06-18] MEDS ORDERED: CEPH500C PO (16:08)
== END 2017-06-11 22:01 | disposition home or self-care (01) ==
LOC: SED 16:43
DX: R10.9 Unspecified abdominal pain (principal); I10 Essential (primary) hypertension; E11.9 Type 2 diabetes mellitus without complications; K21.9 Gastro-esophageal reflux disease without esophagitis; Z86.711 Personal history of pulmonary embolism; Z86.718 Personal history of other venous thrombosis and embolism; Z79.01 Long term (current) use of anticoagulants; Z79.84 Long term (current) use of oral hypoglycemic drugs; Z88.0 Allergy status to penicillin; Z88.8 Allergy status to other drugs, medicaments and biological substances
CPT/HCPCS: 36415; 74176; 80053; 81000; 83735; 85025; 85610; 87086; 87088; 87186; 96361; 96374; 96375; 99285; J1170; J1885; J2405; J7030